=== PATIENT | female | born 1935 | race Caucasian/White ===

== ENCOUNTER 2018-10-30 02:59 | Inpatient (IN) | payer OTHER ==
[~2018-10-30] VITALS: Ht 167.6 cm; Wt 58.5 kg
[2018-10-30] VITALS (19 sets, daily range): BP systolic 93–167
--- NOTE | 2018-10-30 02:59 | NUR ---
Patient to ER bed 1 to gown for evaluation. Side rails up. Seizure precautions initiated.
--- NOTE | 2018-10-30 03:00 | NUR ---
ER at bedside examining patient.
--- NOTE | 2018-10-30 03:01 | NUR ---
Pt came to the ED by EMS for a witnessed 15 seizure. Reports that pt was seizing while EMS arrived. HX of seizures and blindness. Pts polst states pt is DNR. Pt is from home. Pt received 5 mg of Versed IV in L hand IV. Pt is a poor historian and unable to get history of pt. Upon observation pt is twitching. Pt on cardiac/O2 monitor. Seizure precautions continued. Will cont. to monitor.
--- NOTE | 2018-10-30 03:05 | NUR ---
Per EMS, pt is DNR with comfort measures, however, no paperwork was given.
--- NOTE | 2018-10-30 03:11 | NUR ---
Pt is currently unresponsive, on 15 L nonrebreather and twitching.
[2018-10-30] MEDS ORDERED: levETIRAcetam 1,000 MG IV BAG 100 ML IV ONE (03:15)
[2018-10-30] MEDS ORDERED: NACL 0.9% 1,000 ML IV ONE (03:15)
[2018-10-30] MEDS ORDERED: LORazepam 2 MG/ML VIAL IVP ONE (03:15)
[2018-10-30] MEDS ORDERED: LORazepam 2 MG/ML VIAL ONE (03:30)
[2018-10-30 03:48] LABS: BASOPHILS % (AUTO) 0.2 % (0.0-2.0); HEMATOCRIT 43.6 % (36-48); HEMOGLOBIN 14.7 g/dL (12.0-16.0); LYMPHOCYTES # (AUTO) 0.3 K/uL (1.0-5.5); LYMPHOCYTES % (AUTO) 2.6 % (20.5-51.5); MEAN CORPUSCULAR HEMOGLOBIN 34 pg (27-31); MEAN CORPUSCULAR HGB CONC 34 % (32-36); MEAN CORPUSCULAR VOLUME 102 fL (79.0-98.0); MONOCYTES # (AUTO) 0.4 K/uL (0.0-1.0); MONOCYTES % (AUTO) 2.9 % (1.7-9.3); NEUTROPHILS # (AUTO) 12.7 K/uL (1.8-7.7); NEUTROPHILS % (AUTO) 94.3 % (40.0-70.0); PLATELET COUNT (AUTO) 197 K/uL (130-430); RED BLOOD CELL COUNT(AUTO) 4.27 MIL/uL (4.2-6.2); WHITE BLOOD COUNT (AUTO) 13.4 K/uL (4.8-10.8)
[2018-10-30 03:55] LABS: ANION GAP 7 (5-15); CALCIUM 7.7 mg/dL (8.4-11.0); CHLORIDE 105 mmol/L (98-107); CREATININE 1.06 mg/dL (0.55-1.30); GLUCOSE 107 mg/dL (70-99); POTASSIUM 3.9 mmol/L (3.5-5.1); SODIUM SERUM 140 mmol/L (136-145); UREA NITROGEN, BLOOD 15 mg/dL (8-21)
[2018-10-30 03:59] LABS: PROTHROMBIN TIME 10.4 SECS (9.5-12.5)
[2018-10-30 04:00] LABS: ALANINE AMINOTRANSFERASE 16 U/L (12-78); ALBUMIN 2.9 g/dL (3.4-4.8); ASPARTATE AMINOTRANSFERASE 20 U/L (10-37); TOTAL BILIRUBIN 0.6 mg/dL (0.0-1.0)
[2018-10-30] MEDS ORDERED: levETIRAcetam 1,000 MG in NS 100 ML IV ONE (04:00)
[2018-10-30 04:13] LABS: BILIRUBIN,URINE NEGATIVE (NEGATIVE); BLOOD, URINE NEGATIVE (NEGATIVE); CLARITY/URINE HAZY (CLEAR); COLOR,URINE YELLOW (YELLOW); GLUCOSE,URINE NEGATIVE (NEGATIVE); KETONES,URINE NEGATIVE (NEGATIVE); LEUKOCYTE ESTERASE ,URINE 3+ (NEGATIVE); NITRITE, URINE NEGATIVE (NEGATIVE); PH,URINE 7.5 (5.0-8.0); PROTEIN URINE TRACE (NEGATIVE); UROBILINOGEN,URINE 0.2 (0.2-1.0)
[2018-10-30] MEDS ORDERED: ENOXAPARIN SODIUM 60 MG/0.6 ML SYRINGE SUBCUT ONE (04:15)
--- NOTE | 2018-10-30 04:17 | NUR ---
Pts polst states "selective treatment and DNR." Refer to POLST in chart
[2018-10-30] MEDS ORDERED: LEVE250T2 PO (04:42)
--- NOTE | 2018-10-30 05:10 | NUR ---
Pts relative Connie Andrews arrived to ED. She reports that she is POA. She states that pt was "eating pureed food at 1530. And normally can walk with walker at home." She cont. to report that "last night pt was swallowing food/drinks but not swallowing. She would keep it in her mouth." ER MD made aware
[2018-10-30 05:11] LABS: BACTERIA,URINE MANY /HPF (None Seen); HYALINE CASTS, URINE 0-10 /LPF (None Seen); RBC,URINE 0-3 /HPF (0-3); WBC,URINE >100 /HPF (0-3)
--- NOTE | 2018-10-30 05:11 | NUR ---
Patient will be admitted to care of Dr. Clements. Admitted to icu unit. Will go to room 7. Belongings list completed. Summary report printed. Report will be given at bedside.
--- NOTE | 2018-10-30 05:12 | NUR ---
Called ICU for bed, spoke to charge Rashmi BENNETT who said that due to staffing, pt will be a hold till 604. MARIUM MCGREGOR and Charge nurse made aware.
[2018-10-30] MEDS ORDERED: LEVOFLOXACIN 500 MG/D5W 100 ML IV SCH (05:45)
--- NOTE | 2018-10-30 06:15 | NUR ---
ADMISSION Pt admitted to ICU-8 via gurney accompanied by ER staff and PIEDAD Rosales. Pt non-verbal unable to assess pupils, patient is blind. Oxygen in use 3L/min nasal cannula, O2 sat greater than 95%. Bilateral lungs with rhonchi. Cardiac rhythm sinus rhythm. Pulses radial and pedal normal. Skin intact, with blanchable redness over buttocks, and bilateral heels. Crabtree cath placed in ER draining cloudy kristin color urine. IV sites 20ga LAC and 20ga Right wrist both started by ER staff. Left hand 20ga site started by EMT. All patent no redness or swelling noted @ site.
--- NOTE | 2018-10-30 06:15 | NUR ---
Transfer to ICU via ACLS protocol. Licensed nurse present. IV present no signs or symptoms of infiltration.
--- NOTE | 2018-10-30 06:20 | NUR ---
Called Dr. Woodard with a consult, spoke with Melissa from the exchange
--- NOTE | 2018-10-30 07:20 | NUR ---
Opening Note Received bedside report from endorsing RN for continuation of care. Received patient resting in bed, no signs or symptoms of acute distress noted. Bed locked in lowest position, bed alarm on, and call light within reach.
[2018-10-30] MEDS: LORazepam 2 MG/ML VIAL IVP PRN ×4 (08:12→17:16)
--- NOTE | 2018-10-30 08:50 | NUR ---
Called Dr. Ruiz with a consult(eleveted troponin), spoke with Melissa from the exchange
--- NOTE | 2018-10-30 09:15 | NUR ---
Dr. Ruiz at bedside examining patient. New orders received.
--- NOTE | 2018-10-30 11:00 | NUR ---
2D ECHO being performed at bedside by technical services assistant. No signs or symptoms of acute distress noted.
[2018-10-30 11:19] LABS: THYROID STIMULATING HORMONE 2.1 uIu/mL (0.36-3.74)
--- NOTE | 2018-10-30 11:43 | NUR ---
SS Note: BARK SKINNER met with pt and POA (Deb Jackson) at bedside for discharge plan assessment, and demographic information confirmed. Per Deb, prior to coming to the hospital, the patient seems to be in her normal state (eating, talking) in the AM, but was talking about "having 6 angels surrounding" her and verbalizing "I want to go [facility] to [facility] Per Deb, when pt was sleeping, she noticed that the patient had some "weird movements" and realized that it was not her baseline, hence calling 911. Pt was then brought to our ED. Per Deb, pt is a friend and has been living with her and her in her home for 6 months now. Deb is the patient's POA. Per Deb, pt is non ambulatory and dependent with her ADL's and is verbal. Pt does not have any family. Pt has an advanced directive and POLST on file. Pt receives fpc money of $2500/month. Pt is currently on self-pay. Per Deb, she tried to pay for the patient's Medicare but was told by SS to wait for "two months" for an unknown reason. [facility] is requesting for to provide a certificate of hospitalization to take to SS office tomorrow; BARK SKINNER will provide. BARK SKINNER provided pt with [facility], and Anuradha from Admitting is sending an email to [facility] to follow up. Addendum: 10/30/18 at 1219 by Steven BURNETTE PCP: Dr. Adrian Navas in [place] @ [phone].
[2018-10-30] MEDS: NACL 0.9% 1,000 ML IV SCH ×3 (11:53→23:03)
[2018-10-30] MEDS ORDERED: FAMOTIDINE PF 20 MG/2 ML VIAL IVP ONE (12:45)
--- NOTE | 2018-10-30 12:50 | NUR ---
Dr. Clements in to see patient. New orders received.
[2018-10-30] MEDS: IPRATROPIUM/ALBUTEROL SULFATE 3 ML AMPUL.NEB (DUONEB) INH SCH ×2 (13:32→19:40)
[2018-10-30] MEDS: LEVOFLOXACIN 500 MG/D5W 100 ML IV SCH (13:44)
--- NOTE | 2018-10-30 19:00 | NUR ---
Dr. Woodard in to see patient. New orders received.
--- NOTE | 2018-10-30 19:20 | NUR ---
Endorsement Endorsed bedside report to oncoming RN using SBAR approach for continuation of care.
--- NOTE | 2018-10-30 19:22 | NUR ---
Bedside report received from day shift nurse. Pt is lethargic and non-verbal. Oxygen is on via NC at 2L/min. Oxygen saturation is 94%. No seizure activity noted. Crabtree catheter to gravity drainage is draining kristin colored urine. IVF of NS is infusing well at 100ml/hr in right wrist without any signs of infiltration. Fall, seizure and safety precautions are in place. Bed alarm is on and bed is in the lowest and locked positions. Side rails are padded.
[2018-10-30] MEDS: levETIRAcetam 1,000 MG IV BAG 100 ML IV SCH (20:31)
[2018-10-30] MEDS ORDERED: levETIRAcetam 1,000 MG in NS 100 ML IV SCH (21:00)
--- NOTE | 2018-10-30 21:00 | NUR ---
Pt remains lethargic. No seizure activity noted. IVF is infusing well in right wrist.
--- NOTE | 2018-10-30 23:00 | NUR ---
Pt remains lethargic. IVF is infusing well in RW. No seizure activity noted.
[2018-10-31] VITALS (24 sets, daily range): BP systolic 98–182
--- NOTE | 2018-10-31 | NUR ---
Temp 99.7. Ice packs applied to forehead, chest and underarms. No seizure activity noted. IVF is infusing well in RW.
[2018-10-31] MEDS: IPRATROPIUM/ALBUTEROL SULFATE 3 ML AMPUL.NEB (DUONEB) INH SCH ×4 (00:55→20:13)
--- NOTE | 2018-10-31 01:10 | NUR ---
Pt suctioned both intranasally and orally. Moderate amount of thick brownish sputum noted. Temp 99.5 rectally. Cooling measures with ice packs continued. No seizure activity noted.
--- NOTE | 2018-10-31 01:50 | NUR ---
CARDIAC RHYTHM Call placed to Dr Ruiz to report cardiac rhythm change from sinus tach to uncontrolled afib 125-160 rate. Waiting return call from Dr Stephens (online education manager).
--- NOTE | 2018-10-31 02:50 | NUR ---
DR JOSEPH Give Digoxin 0.125mg IVP X1 now, May repeat in 3 hours if heart rate above 110.
--- NOTE | 2018-10-31 03:03 | NUR ---
HR 137 and Digoxin 0.125mg given IVP as ordered by Dr. Stephens.
[2018-10-31] MEDS ORDERED: DIGOXIN 0.5 MG/2 ML AMP ONE (03:11)
[2018-10-31] MEDS: DIGOXIN 0.5 MG/2 ML AMP IVP SCH ×2 (03:15→06:16)
--- NOTE | 2018-10-31 03:23 | NUR ---
Ativan 1mg given IV for seizure activity. Side rails remain padded. IVF is infusing well in RW.
[2018-10-31] MEDS: LORazepam 2 MG/ML VIAL IVP PRN ×2 (03:24→14:21)
--- NOTE | 2018-10-31 04:30 | NUR ---
Pt remains lethargic. No acute distress noted at this time. IVF is infusing well in RW.
[2018-10-31 05:25] LABS: BASOPHILS % (AUTO) 0.1 % (0.0-2.0); HEMATOCRIT 36.7 % (36-48); HEMOGLOBIN 12.4 g/dL (12.0-16.0); LYMPHOCYTES # (AUTO) 0.7 K/uL (1.0-5.5); LYMPHOCYTES % (AUTO) 5.4 % (20.5-51.5); MEAN CORPUSCULAR HEMOGLOBIN 35 pg (27-31); MEAN CORPUSCULAR HGB CONC 34 % (32-36); MEAN CORPUSCULAR VOLUME 103 fL (79.0-98.0); MONOCYTES # (AUTO) 0.6 K/uL (0.0-1.0); MONOCYTES % (AUTO) 4.6 % (1.7-9.3); NEUTROPHILS # (AUTO) 12.2 K/uL (1.8-7.7); NEUTROPHILS % (AUTO) 89.9 % (40.0-70.0); PLATELET COUNT (AUTO) 148 K/uL (130-430); RED BLOOD CELL COUNT(AUTO) 3.57 MIL/uL (4.2-6.2); RED CELL DISTRIBUTION WIDTH 13.2 % (9.0-15.0); WHITE BLOOD COUNT (AUTO) 13.6 K/uL (4.8-10.8)
[2018-10-31 05:55] LABS: ALANINE AMINOTRANSFERASE 12 U/L (12-78); ANION GAP 2 (5-15); ASPARTATE AMINOTRANSFERASE 16 U/L (10-37); CALCIUM 7.8 mg/dL (8.4-11.0); CHLORIDE 110 mmol/L (98-107); CHOLESTEROL 107 mg/dL (<200); CREATININE 0.92 mg/dL (0.55-1.30); GLUCOSE 111 mg/dL (70-99); HDL CHOLESTEROL 36 mg/dL (>55); LDL CHOLESTEROL 64 mg/dL (<100); POTASSIUM 3.7 mmol/L (3.5-5.1); SODIUM SERUM 136 mmol/L (136-145); THYROID STIMULATING HORMONE 1.89 uIu/mL (0.34-4.82); TOTAL BILIRUBIN 0.8 mg/dL (0.0-1.0); TRIGLYCERIDES 55 mg/dL (30-150); UREA NITROGEN, BLOOD 19 mg/dL (8-21)
--- NOTE | 2018-10-31 06:16 | NUR ---
HR 137 and second Digoxin 0.125mg given IVP as ordered by Dr. Stephens.
--- NOTE | 2018-10-31 07:20 | NUR ---
OPENING NOTE: Received SBAR report and plan of care from food and beverage analyst RN
--- NOTE | 2018-10-31 07:27 | NUR ---
Report given to day shift nurse.
--- NOTE | 2018-10-31 08:00 | NUR ---
Dr Ruiz at bedside
[2018-10-31] MEDS ORDERED: AMIODARONE HCL 900 MG in D5W 482 ML IV SCH (08:15)
--- NOTE | 2018-10-31 08:41 | NUR ---
New consult paged to Dr. Leija. Spoke with evelyne Torres.
[2018-10-31] MEDS: levETIRAcetam 1,000 MG IV BAG 100 ML IV SCH ×2 (08:53→20:12)
[2018-10-31] MEDS: FAMOTIDINE PF 20 MG/2 ML VIAL IVP SCH (08:53)
--- NOTE | 2018-10-31 09:09 | NUR ---
Nutrition Update Chintan Scale 13 noted. Pt admitted for s/p epilepticus. Diet: NPO BMI: 19.5 kg/m2 RD to follow per nutrition care standards.
--- NOTE | 2018-10-31 09:13 | NUR ---
AMIODARONE drip initiated as ordered
[2018-10-31] MEDS: NACL 0.9% 1,000 ML IV SCH (12:00)
[2018-10-31] MEDS: LEVOFLOXACIN 500 MG/D5W 100 ML IV SCH (13:09)
--- NOTE | 2018-10-31 14:00 | NUR ---
Dr Leija at bedside
--- NOTE | 2018-10-31 14:20 | NUR ---
Dietitian Recommendations * Consider ST swallow eval if/when medically appropriate * Pt would benefit from ONS Ensure Enlive TID and Syed BID if PO diet is indicated -- provides 1230 kcal/day, 65 gm protein/day QUINCY, CAMI Please refer to Nutrition Assessment for details. Addendum: 10/31/18 at [address] Amended: Links added.
--- NOTE | 2018-10-31 14:30 | NUR ---
CHG BATH: CHG bath given, gown and linens changed, patient tolerated well with minimal discomfort.
--- NOTE | 2018-10-31 15:13 | NUR ---
AMIODARONE drip rate reduced as ordered
[2018-10-31] MEDS: 0.45% NACL 1,000 ML IV SCH (15:30)
[2018-10-31] MEDS: PIPERACILLIN/TAZO 3.375/DEX-IS 50 ML IV SCH ×2 (18:03→23:19)
[2018-10-31] MEDS ORDERED: ENOXAPARIN SODIUM 40 MG/0.4 ML SYRINGE SUBCUT ONE (18:15)
--- NOTE | 2018-10-31 19:25 | NUR ---
ENDORSEMENT: SBAR report given and plan of care endorsed to machine operator helper SABRINA Chavez.
--- NOTE | 2018-10-31 19:30 | NUR ---
PM ASSESSMENT REPORT RECEIVED FROM DANII BENNETT. PT RECEIVED IN BED WITH EYES CLOSED, LETHARGIC, AND RESPONDING TO TACTILE STIMULATION. VSS, NO S/S OF ACUTE DISTRESS NOTED. PT ON 4L NC. A-FIB ON MONITOR. L HAND 20G TO SL, R WRIST 20G INFUSING 1/2 NS @ 80 CC/HR AND AMIODARONE DRIP @ 0.5 MG/MIN. UMANZOR CATH IN PLACE DRAINING YELLOW URINE TO GRAVITY. SEIZURE PRECAUTIONS IN PLACE. HOB ELEVATED, BED IN LOWEST POSITION, CALL LIGHT IN REACH. WILL CONTINUE TO MONITOR PT.
--- NOTE | 2018-10-31 23:30 | NUR ---
IV SITE IV SITE TO L HAND LEAKING. IV SITE DISCONTINUED. CATHETER INTACT, NO ACTIVE BLEEDING NOTED. IV Restarted on RT HAND. Successful after 1 attempts. Resumed current IVF AND MEDICATIONS. Will observe for any signs of infiltration.
[2018-11-01] VITALS (23 sets, daily range): BP systolic 106–179
--- NOTE | 2018-11-01 01:30 | NUR ---
NC PT SATURATION REMAINS IN THE HIGH 90s. RT DECREASED NC TO 3L AT THIS TIME. WILL CONTINUE TO MONITOR PT.
[2018-11-01] MEDS: IPRATROPIUM/ALBUTEROL SULFATE 3 ML AMPUL.NEB (DUONEB) INH SCH ×4 (01:34→19:46)
--- NOTE | 2018-11-01 02:30 | NUR ---
SUCTION RT PROVIDED NASOTRACHEAL SUCTIONING AT THIS TIME. LARGE AMOUNT OF THICK YELLOW SPUTUM NOTED. WILL CONTINUE TO MONITOR PT.
[2018-11-01] MEDS: PIPERACILLIN/TAZO 3.375/DEX-IS 50 ML IV SCH ×4 (05:41→23:11)
[2018-11-01] MEDS: 0.45% NACL 1,000 ML IV SCH ×2 (05:41→16:39)
[2018-11-01 06:29] LABS: BASOPHILS % (AUTO) 0.3 % (0.0-2.0); HEMATOCRIT 35.1 % (36-48); HEMOGLOBIN 11.9 g/dL (12.0-16.0); LYMPHOCYTES # (AUTO) 0.6 K/uL (1.0-5.5); LYMPHOCYTES % (AUTO) 5.4 % (20.5-51.5); MEAN CORPUSCULAR HEMOGLOBIN 35 pg (27-31); MEAN CORPUSCULAR HGB CONC 34 % (32-36); MEAN CORPUSCULAR VOLUME 103 fL (79.0-98.0); MONOCYTES # (AUTO) 0.5 K/uL (0.0-1.0); MONOCYTES % (AUTO) 4.7 % (1.7-9.3); NEUTROPHILS # (AUTO) 10.2 K/uL (1.8-7.7); NEUTROPHILS % (AUTO) 89.6 % (40.0-70.0); PLATELET COUNT (AUTO) 135 K/uL (130-430); RED BLOOD CELL COUNT(AUTO) 3.41 MIL/uL (4.2-6.2); RED CELL DISTRIBUTION WIDTH 12.9 % (9.0-15.0); WHITE BLOOD COUNT (AUTO) 11.4 K/uL (4.8-10.8)
[2018-11-01 06:35] LABS: ALANINE AMINOTRANSFERASE 16 U/L (12-78); ALBUMIN 2.1 g/dL (3.4-4.8); ANION GAP 8 (5-15); ASPARTATE AMINOTRANSFERASE 33 U/L (10-37); CALCIUM 7.8 mg/dL (8.4-11.0); CHLORIDE 108 mmol/L (98-107); CREATININE 0.83 mg/dL (0.55-1.30); GLUCOSE 102 mg/dL (70-99); POTASSIUM 3.2 mmol/L (3.5-5.1); SODIUM SERUM 139 mmol/L (136-145); UREA NITROGEN, BLOOD 15 mg/dL (8-21)
--- NOTE | 2018-11-01 07:27 | NUR ---
Opening Note Received plan of care from endorsing nurse Kathy BENNETT via sbar. Completed patient round.
--- NOTE | 2018-11-01 07:57 | NUR ---
Dr. Ruiz at bedside. Order received for NG tube placement and to continue amiodarone until we are able to give meds PO.
[2018-11-01] MEDS: AMIODARONE HCL 200 MG TABLET PO SCH (09:00)
[2018-11-01] MEDS: METOPROLOL TARTRATE 25 MG TABLET PO SCH (09:00)
[2018-11-01] MEDS ORDERED: POTASSIUM CHLORIDE 40 MEQ, LIDOCAINE JECT 2% PF 100 MG 50 MG in NS 250 ML IV ONE (09:00)
[2018-11-01] MEDS: levETIRAcetam 1,000 MG IV BAG 100 ML IV SCH ×2 (09:20→20:51)
[2018-11-01] MEDS: FAMOTIDINE PF 20 MG/2 ML VIAL IVP SCH (09:21)
[2018-11-01] MEDS: ENOXAPARIN SODIUM 40 MG/0.4 ML SYRINGE SUBCUT SCH (09:22)
--- NOTE | 2018-11-01 10:00 | NUR ---
Tried to place NG tube in both nares but was unable to confirm placement. PT tolerated the procedure without complication or complaints. Will allow patient to rest before trying again.
--- NOTE | 2018-11-01 10:40 | NUR ---
IV. ANOTHER IV ACCESS INSERTED INTO LEFT WRIST, USING 20 GAUGE CATHETER, GOOD BLOOD RETURN NOTED.
--- NOTE | 2018-11-01 14:00 | NUR ---
Dr. Leija at bedside. Requested if an OG tube can be placed. Per Dr. Leija it is okay to try. Placed OG tube into patient and was able to ascultate placement. Requested chest xray for confirmation. Received feed back from radiology that the tube has curled in the esophagus but tip of the tube is in the stomach. Received recommendation to pull tube out slightly to remove loop.
--- NOTE | 2018-11-01 15:50 | NUR ---
Dr. Clements at bedside. Discussed the POA request to not provide any tube feedings. Dr. Clements referred pt to social work therapist to help find hospice. Also was recommended to reach out to Dr. Ruiz to discuss IV medication for amiodarone and lopressor as patient is unable to take PO. Called Dr. Ruiz spoke to exchange. Per exchange Dr. Stephens will be doing rounds later this afternoon and will discuss medication conversion from PO to IV when he completes his rounds.
--- NOTE | 2018-11-01 15:52 | NUR ---
S.T. SWALLOW EVAL ORDER RECEIVED TODAY. CHECKED ON PT. NOT ABLE TO COMPLETE EVAL - PT IS ON OG TUBE. NURSES STACIA AND DR. CLAUDIA HENDRIX.
--- NOTE | 2018-11-01 16:05 | NUR ---
Wound Evaluation: Wound Consult ordered for Low Chintan Score. Patient evaluated for a low Chintan score of 12. Patient was lethargic and received in a Cliff Bed with IAM therapy intiated. Patient needs to be turned in bed. Skin is intact. Recommend reposition patient side to side only every 2 hours with pillow support. Elevate, off-load and float bilateral heels with pillows. Offload pressure areas with pillows for pressure re-distribution. Perform skin care and monitor skin integrity Q shift. Use moisture barrier cream on moisture susceptible areas QID and PRN for soiling. Place patient on a low air-loss mattress. Will continue to follow as a Chintan.
--- NOTE | 2018-11-01 16:20 | NUR ---
Risk Compliance Manager Note ACQUISITION MARKETING MANAGER discussed with Dr Clements. Patient has indicated no tube feedings in POLST and DPOA Deb confirmed that is patient's wish. Hospice is appropriate. Met with caregiver, Deb, at bedside. Offered support and confirmed patient's wishes. Deb in agreement with hospice. Dbe stated payment has been made to Medicare and patient would not qualify for [facility]. Phoned Admitting, but gone for the day. It seems Medicare is not yet in place and will not be able to confirm further until Sunday. [place] [facility] [phone][place] for inpatient hospice as discussed with Dr Clements. May confirmed that insurance must be in place before they can accept patient. Will follow up on Sunday. Addendum: 11/01/18 at 1634 by Meenakshi Clark LCSW Correction, hospice company is now called [facility].
--- NOTE | 2018-11-01 19:22 | NUR ---
Closing Note: Provided plan of care via sbar to endorsing nurse Kory BENNETT. Completed patient round.
--- NOTE | 2018-11-01 19:30 | NUR ---
Pt in bed, no acute distress noted at this time. VSS tolerating room air with O2 saturation of 97%. Responds to tactile stimuli. Amiodarone drip running and tolerating well with sinus arrhythmia on the monitor. IV patent with no infiltration noted. Crabtree catheter in placed draining clear yellow urine to gravity. Safety precaution observed, padded side rails in placed. call light within reach. Will continue to monitor Pt.
[2018-11-02] VITALS (25 sets, daily range): BP systolic 123–176
--- NOTE | 2018-11-02 | NUR ---
Pt in bed, no acute distress noted at this time. Will continue to monitor Pt.
[2018-11-02] MEDS: IPRATROPIUM/ALBUTEROL SULFATE 3 ML AMPUL.NEB (DUONEB) INH SCH ×4 (02:26→19:36)
--- NOTE | 2018-11-02 04:00 | NUR ---
Pt in bed, no acute distress noted at this time. Will continue to monitor Pt.
[2018-11-02] MEDS: PIPERACILLIN/TAZO 3.375/DEX-IS 50 ML IV SCH ×4 (05:44→23:14)
[2018-11-02] MEDS: 0.45% NACL 1,000 ML IV SCH ×2 (05:51→17:39)
[2018-11-02 05:53] LABS: BASOPHILS % (AUTO) 0.2 % (0.0-2.0); EOSINOPHILS % (AUTO) 0.2 % (0.0-4.0); HEMOGLOBIN 12.5 g/dL (12.0-16.0); MEAN CORPUSCULAR HEMOGLOBIN 35 pg (27-31); MEAN CORPUSCULAR HGB CONC 34 % (32-36); MONOCYTES # (AUTO) 0.4 K/uL (0.0-1.0); NEUTROPHILS # (AUTO) 7.2 K/uL (1.8-7.7); RED BLOOD CELL COUNT(AUTO) 3.57 MIL/uL (4.2-6.2); RED CELL DISTRIBUTION WIDTH 13.1 % (9.0-15.0)
[2018-11-02 05:55] LABS: HEMATOCRIT 36.3 % (36-48); LYMPHOCYTES # (AUTO) 0.5 K/uL (1.0-5.5); LYMPHOCYTES % (AUTO) 6.7 % (20.5-51.5); MEAN CORPUSCULAR VOLUME 102 fL (79.0-98.0); MONOCYTES % (AUTO) 5.2 % (1.7-9.3); NEUTROPHILS % (AUTO) 87.7 % (40.0-70.0); PLATELET COUNT (AUTO) 156 K/uL (130-430); WHITE BLOOD COUNT (AUTO) 8.2 K/uL (4.8-10.8)
[2018-11-02 06:15] LABS: ALANINE AMINOTRANSFERASE 16 U/L (12-78); ALBUMIN 2.1 g/dL (3.4-4.8); ANION GAP 7 (5-15); ASPARTATE AMINOTRANSFERASE 35 U/L (10-37); CALCIUM 7.6 mg/dL (8.4-11.0); CHLORIDE 109 mmol/L (98-107); CREATININE 0.73 mg/dL (0.55-1.30); GLUCOSE 98 mg/dL (70-99); POTASSIUM 3.3 mmol/L (3.5-5.1); SODIUM SERUM 140 mmol/L (136-145); UREA NITROGEN, BLOOD 8 mg/dL (8-21)
--- NOTE | 2018-11-02 07:04 | NUR ---
CLOSING NOTES Pt in bed, no acute distress. IV lines and skin checked with oncoming RN. Will give report via SBAR.
--- NOTE | 2018-11-02 07:32 | NUR ---
Opening Note Received plan of care via sbar from endorsing nurse Michael BENNETT. Completed patient rounding.
[2018-11-02] MEDS: FAMOTIDINE PF 20 MG/2 ML VIAL IVP SCH (08:24)
[2018-11-02] MEDS: ENOXAPARIN SODIUM 40 MG/0.4 ML SYRINGE SUBCUT SCH (08:25)
--- NOTE | 2018-11-02 09:00 | NUR ---
Dr. Leija at bedside. Reported potassium 3.3. Received orders for 40 meq potassium via IV fluid to run for 4 hours, 67.5 ml/hr.
[2018-11-02] MEDS ORDERED: POTASSIUM CHLORIDE 40 MEQ in NS 250 ML IV ONE (09:15)
--- NOTE | 2018-11-02 10:00 | NUR ---
Dr. Clements at bedside. No new orders.
[2018-11-02] MEDS: levETIRAcetam 1,000 MG IV BAG 100 ML IV SCH ×2 (10:26→20:34)
--- NOTE | 2018-11-02 11:30 | NUR ---
Removed IV on right hand 20 gauge. Site no longer patent and leaking. New IV placed on right wrist 20 gauge on one attempt following guidelines. Patient tolerated procedure without issues or complaints.
--- NOTE | 2018-11-02 15:30 | NUR ---
Dr. Stephens at bedside. Received new orders for Lopressor 5mg IV push Q6 scheduled. Also received approval to continue Amiodarone 0.5 mcg/min drip.
[2018-11-02] MEDS ORDERED: AMIODARONE HCL 900 MG in D5W 482 ML IV SCH (15:45)
[2018-11-02] MEDS ORDERED: METOPROLOL TARTRATE 5 MG/5 ML VIAL IVP ONE (16:00)
[2018-11-02] MEDS: METOPROLOL TARTRATE 5 MG/5 ML VIAL IVP SCH ×2 (17:43→23:15)
--- NOTE | 2018-11-02 18:05 | NUR ---
Nutrition Follow Up RD reviewed pt's current EMR including diet hx, physician notes, nursing notes, pertinent labs/meds/procedures, care trends and care activity. Current Enteral Regimen: Jevity 1.2 @ 20ml/hr with 150ml FWF via NGT. Subjective Information: RD visited at pt, observed no tube feeding in place. Per RN, family requested NGT to be pulled out with no further nutrition intervention. Comfort care is goal at this time. Estimated Energy Expenditure (kcals/day) 9984-7267 kcal/day (30-35 kcal/kg CBW for sepsis) Estimated Protein Required (g/day) 83-110 gm/day (1.5-2 gm/kg CBW for sepsis) Estimated Fluid Required (l/day) 1.4 L/day (25 ml/kg CBW for geriatric maintenance) Problem/Etiology/Signs/Symptoms *Increased nutritional needs related to metabolic demands as evidenced by estimated nutritional requirements for sepsis, and elevated WBC and lactic acid lab values. - ongoing *Inadequate nutrient intake related to no tube feeding per family wish as evidenced by tube feeding discontinued - new Expected Outcomes/Goals - Monitor enteral nutrition tolerance, appetite, and PO intakes w/ goal of pt meeting at least 50% of estimated nutritional needs, labs trending WNL, normal GI function, and skin integrity/wt maintenance Dietitian Recommendations 1. No tube feeding, continue comfort care per family wish Follow Up Low Risk: FU 7 days LT, RD
--- NOTE | 2018-11-02 18:15 | NUR ---
Dietitian Recommendations 1. No tube feeding, continue comfort care per family wish Please see nutrition follow up for further details. LT, RD
--- NOTE | 2018-11-02 19:30 | NUR ---
PM ASSESSMENT REPORT RECEIVED FROM PAIGE BENNETT. PT RECEIVED IN BED WITH EYES CLOSED, RESPONDING TO TACTILE STIMULATION. VSS, NO S/S OF ACUTE DISTRESS NOTED. PT ON 3L NC. SR W PACs ON MONITOR. R WRIST 22G INFUSING 1/2 NS @ 80 CC/HR AND L WRIST 20G INFUSING AMIODARONE DRIP @ 0.5 MG/MIN. UMANZOR CATH IN PLACE DRAINING YELLOW URINE TO GRAVITY. SEIZURE PRECAUTIONS IN PLACE. HOB ELEVATED, BED IN LOWEST POSITION, CALL LIGHT IN REACH. WILL CONTINUE TO MONITOR PT.
--- NOTE | 2018-11-02 21:15 | NUR ---
NASAL SUCTION LOUD GURGLING SOUND HEARD FROM PT AT THIS TIME. ORALLY SUCTIONED WITH MINIMAL SPUTUM RETURN. RT AT BEDSIDE TO PERFORM NASOTRACHEAL SUCTION. MODERATE AMOUNT OF THICK YELLOW SPUTUM EXTRACTED. WILL CONTINUE TO MONITOR PT.
[2018-11-03] VITALS (16 sets, daily range): BP systolic 108–213
[2018-11-03] MEDS: IPRATROPIUM/ALBUTEROL SULFATE 3 ML AMPUL.NEB (DUONEB) INH SCH ×4 (00:20→19:26)
--- NOTE | 2018-11-03 02:00 | NUR ---
RN ROUNDS PT RESTING COMFORTABLY IN BED WITH EYES CLOSED. BREATHING IS EVEN AND UNLABORED ON 3L NC. VSS, NO S/S OF ACUTE DISTRESS NOTED. WILL CONTINUE TO MONITOR PT.
[2018-11-03] MEDS: 0.45% NACL 1,000 ML IV SCH ×2 (05:03→20:03)
[2018-11-03] MEDS: METOPROLOL TARTRATE 5 MG/5 ML VIAL IVP SCH ×5 (05:04→23:39)
[2018-11-03] MEDS: PIPERACILLIN/TAZO 3.375/DEX-IS 50 ML IV SCH ×4 (05:04→23:36)
[2018-11-03 05:41] LABS: ANION GAP 7 (5-15); CALCIUM 7.4 mg/dL (8.4-11.0); CHLORIDE 103 mmol/L (98-107); CREATININE 0.66 mg/dL (0.55-1.30); GLUCOSE 145 mg/dL (70-99); POTASSIUM 3.2 mmol/L (3.5-5.1); SODIUM SERUM 135 mmol/L (136-145); UREA NITROGEN, BLOOD 5 mg/dL (8-21)
--- NOTE | 2018-11-03 07:13 | NUR ---
ENDORSEMENT BEDSIDE REPORT GIVEN TO JACOB BENNETT USING SBAR APPROACH.
--- NOTE | 2018-11-03 07:15 | NUR ---
Received patient from [facility] shift nurse and report. In no acute distress. Breathing even and unlabored. No pain AEB no facial grimacing, no moaning. Padded side rails in place. Call light with in reach. Tolerating 4 liters 02 on Nasal Cannula.
--- NOTE | 2018-11-03 08:22 | NUR ---
MOBILE DEVICE DEVELOPER GROUND INTELLIGENCE OFFICER DR JOSEPH WAS CALLED, RE: HIGH BP. SPOKE TO ANKIT.
--- NOTE | 2018-11-03 08:36 | NUR ---
Md Stephens called back, reported latest b/p /. Ordered to change Lopressor to every 4 hours instead of 6. New orders in place.
[2018-11-03] MEDS ORDERED: POTASSIUM CHLORIDE 40 MEQ in NS 250 ML IV ONE (09:30)
[2018-11-03] MEDS: FAMOTIDINE PF 20 MG/2 ML VIAL IVP SCH (09:33)
[2018-11-03] MEDS: levETIRAcetam 1,000 MG IV BAG 100 ML IV SCH ×2 (09:33→20:01)
[2018-11-03] MEDS: ENOXAPARIN SODIUM 40 MG/0.4 ML SYRINGE SUBCUT SCH (09:34)
--- NOTE | 2018-11-03 10:14 | NUR ---
Confirmed with pharmacy that IV potassium is compatible with amiodarone.
--- NOTE | 2018-11-03 12:01 | NUR ---
Pagesteven Clements for orders, spoke with exchange. Addendum: 11/03/18 at 1205 by Terri Horowitz RN Dr. Clements return call. New orders made and carried out.
--- NOTE | 2018-11-03 13:06 | NUR ---
Dr. Stephens paged and returned call. New orders made and carried out. Amiodarone drip off.
--- NOTE | 2018-11-03 15:00 | NUR ---
TRANSFER FROM ICU PATIENT RECEIVED FROM ICU WITH CLOSE EYES NON VERBAL NO DISTRESS, O2 WITH 2L/MIN HOB ELEVATED WITH IVF INTACT TO RT WRIST G 22 INFUSING ORDERED WITH SWOLLEN ARMS , RESP EVEN AND UNLABORED ,WILL MAINTAIN NPO , POA PENDING WITH HOSPICE, WILL MONITOR ,INITIAL VS TAKEN AND NO DISTRESS
--- NOTE | 2018-11-03 15:15 | NUR ---
Patient transferred to tele room 105 B via gurney, tele monitor, and portable 02 at 4 liters, tolerated transfer well. Endorsed patient and gave report to nurse Porsha. Caregiver Connie aware. Patient in no acute distress. No pain AEB no grimacing, no moaning. Breathing even and unlabored. Padded side rails in place. Call light with in reach.
--- NOTE | 2018-11-03 17:19 | NUR ---
ASLEEP PATIENT STILL SLEEPING A TTHIS TIME NO DISTRESS CONT WITH O2 INH VIA NC UMANZOR CATH INTACT AND NO HEMATURIA NOTED BOTH HANDS ELEVATED WILL CONT TO MONITOR AND NO SEIZURE NOTED
--- NOTE | 2018-11-03 18:41 | NUR ---
END RN NOTES PATIENT STAYS CALM AND CON ON 02 INH NO FACIAL GRIMACE OPENS EYES INTERMITTENTLY , CONT WITH REPOSITIONING HANDS KEEP ELEVATED AND HANDLE WITH CAUTION ,IVF INFUSING ORDERED AND CONT WITH IV ATB , SEEN BY DR JOSEPH WILL CONT CARDIAC MONITORING .SAFETY ENSURED AND NO SEIZURES NOTED
--- NOTE | 2018-11-03 19:45 | NUR ---
INITIAL ASSESSMENT AT INITIAL ASSESSMENT, PATIENT IS RESTING IN BED, STABLE, NO SIGNS OF RESPIRATORY DISTRESS. PATIENT IS NONVERBAL- SHE IS IN A ROOM CLOSE TO THE NURSING STATION FOR CLOSE MONITORING. BED IS LOCKED, ALARMED, AND AT THE LOWEST LEVEL. FALL, SAFETY, RESPIRATORY, AND SEIZURE PRECAUTIONS WILL BE IN PLACE THROUGHOUT THE SHIFT. PATIENT WILL BE TURNED AT LEAST S0OIFMS THROUGHOUT THE SHIFT.
[2018-11-04] VITALS: BP_SYST 152
[2018-11-04] MEDS: IPRATROPIUM/ALBUTEROL SULFATE 3 ML AMPUL.NEB (DUONEB) INH SCH ×4 (00:30→19:01)
[2018-11-04] MEDS: METOPROLOL TARTRATE 5 MG/5 ML VIAL IVP SCH ×6 (04:02→23:42)
[2018-11-04] MEDS: PIPERACILLIN/TAZO 3.375/DEX-IS 50 ML IV SCH ×4 (06:36→23:43)
--- NOTE | 2018-11-04 06:45 | NUR ---
CLOSING NOTE PATIENT SLEPT WELL THROUGHOUT THE NIGHT. AT THIS TIME, PATIENT IS RESTING IN BED, STABLE, NO SIGNS OF RESPIRATORY DISTRESS. CALL LIGHT IS WITHIN REACH. BED IS LOCKED, ALARMED, AND AT THE LOWEST LEVEL. FALL, SAFETY, RESPIRATORY, AND SEIZURE PRECAUTIONS HAVE BEEN IN PLACE THROUGHOUT THE NIGHT. WILL CONTINUE TO MONITOR UNTIL SHIFT REPORT IS GIVEN AT BEDSIDE TO AM NURSE.
--- NOTE | 2018-11-04 07:30 | NUR ---
Initial Note-Pt resting in bed. Breathing even and un-labored. Pt receiving breathing treatment for RT. Side rails padded, room close to nursing station. Bed in low position, bed alarm on, call light within reach.
[2018-11-04 08:00] VITALS: BP_SYST 139
[2018-11-04] MEDS ORDERED: POTASSIUM CHLORIDE 40 MEQ, LIDOCAINE JECT 2% PF 100 MG 50 MG in NS 250 ML IV ONE (08:45)
[2018-11-04] MEDS: FAMOTIDINE PF 20 MG/2 ML VIAL IVP SCH (08:59)
[2018-11-04] MEDS: ENOXAPARIN SODIUM 40 MG/0.4 ML SYRINGE SUBCUT SCH (09:00)
--- NOTE | 2018-11-04 09:10 | NUR ---
MD Rounds Dr. Ruiz at bedside examining pt. Informed MD yesterdays potassium of 3.2, and 40 meq were given yesterday. Per Dr. Ruiz ok to administer new order of 40meq for today.
[2018-11-04] MEDS: levETIRAcetam 1,000 MG IV BAG 100 ML IV SCH ×2 (09:14→22:38)
--- NOTE | 2018-11-04 10:15 | NUR ---
MD Rounds Dr. Leija at bedside, examined pt.
--- NOTE | 2018-11-04 10:49 | NUR ---
Animal Caregiver: Follow up re. Hospice VICE PRESIDENT OF BUSINESS DEVELOPMENT called Lisa in Admitting who stated pt will not be getting Medi-Jorje She will follow up re. Medicare and run this inquiry w/ pts. SSN and get back to VICE PRESIDENT OF BUSINESS DEVELOPMENT. Addendum: 11/04/18 at 1502 by Trupti De Guzman VICE PRESIDENT OF BUSINESS DEVELOPMENT Animal Caregiver: follow up with caregiver VICE PRESIDENT OF BUSINESS DEVELOPMENT tried to contact Deb barrera, but had to leave a phone message for her. To date, VICE PRESIDENT OF BUSINESS DEVELOPMENT is to contact Yris in Admin tomorrow to see if Medicare is in place then VICE PRESIDENT OF BUSINESS DEVELOPMENT can contact [facility]. As per suggestion, inquire if caregiver wants hospice in home. VICE PRESIDENT OF BUSINESS DEVELOPMENT recieved message from rachel sharp, Mark Nettles from [facility], came to [facility] at the request of Deb the caregiver. Deb stated she paid all the bills for Medicare and was going to go back to the bank today to see if she can obtain proof that her checks for Medicare had been cashed to help expidite process to secure payment for Hospice. When VICE PRESIDENT OF BUSINESS DEVELOPMENT asked Deb if she wanted to have hospice services in her home, she said the conservator, Jose Manuel, wants hospice in a facility. Mark stated he would check to see if his agency would accept pt. under a janice case. VICE PRESIDENT OF BUSINESS DEVELOPMENT will follow up. Addendum: 11/05/18 at 1243 by Trupti De Guzman VICE PRESIDENT OF BUSINESS DEVELOPMENT Animal Caregiver Follow up VICE PRESIDENT OF BUSINESS DEVELOPMENT spoke to Deb, caregiver power of trust and estates attorney. She stated she is still trying to obtain paperwork showing proof she paid for medicare. She will keep VICE PRESIDENT OF BUSINESS DEVELOPMENT updated. VICE PRESIDENT OF BUSINESS DEVELOPMENT called Conservator, James Richard at [phone] who confirmed Deb is making medical decisions, he confimred that both he and [place] agree that pt is not to have a feeding tube based on pts.' wishes. He stated he is the trustee and handles the finances. He will work on asking Deb to have pt. in home with hospice however, Deb does not want pt. to in her own home. Mr. Richard stated he was going to the bank to liquidate all pts. assessts and get his name on the checking so he can write checks. He stated he will wait to see when Medicare is approved. He stated he is working with [facility] and is available as needed. VICE PRESIDENT OF BUSINESS DEVELOPMENT thanked him.
--- NOTE | 2018-11-04 11:30 | NUR ---
Notes- Pt incontinent of bowel, cleaned and repositioned, tolerated well. Pt resting in bed, breathing even and un-labored.
[2018-11-04 12:00] VITALS: BP_SYST 146
[2018-11-04] MEDS: 0.45% NACL 1,000 ML IV SCH (12:43)
--- NOTE | 2018-11-04 13:10 | NUR ---
Notes Reposition patient. No acute distress noted. IVF infusing well.
--- NOTE | 2018-11-04 15:00 | NUR ---
MD Rounds Dr. Clements examining patient at bedside.
--- NOTE | 2018-11-04 15:13 | NUR ---
Wound Re-Evaluation: Patient re-evaluated for a low Chintan score of 12. Patient was lethargic and received in a [place] Bed with IAM therapy. Patient needs to be turned in bed. Past Medical History: CVA, Atrial Fibrillation, Congestive Heart Failure, possible Chronic Kidney Disease, legally blind, Seizure disorder, Dementia. Recent Labs: WBC 8.2, RBC 3.57, hemoglobin 12.5, hematocrit 36.3, potassium 3.2, glucose 145, BUN 5, creatinine 0.66, albumin 2.1, PTT 22.9. Intrinsic factors that delay wound healing: Hypoalbuminemia, congestive heart failure, atrial fibrillation. Extrinsic factors that delay wound healing: Decreased mobility. Microbiology: Blood culture results 2 negative. MRSA screen results negative. Urine culture results positive for Escherichia coli. Skin Assessment: 1. Buttocks: Intertrigo with MASD/re-opened scar tissue. Wound bed has 100% pink tissue. No odor, no drainage. Ameena-wound intact. Surrounding tissue has scar tissue. Measures 1.1 cm x 0.2 cm. Recommend: Cleanse wound with normal saline. Pat dry. Apply Calmoseptine cream to site. Cover site with Sacral foam dressing (insert dressing into gluteal sulcus with fingers first, then laying adhesive borders of dressing down afterward. Perform site care daily, and as needed for dressing soiling or dislodgement. 2. Left upper extremity: Multiple, multiple areas of scar tissue and dry scabs, present on admission. 3. Right upper extremity: Multiple, multiple areas of scar tissue and dry scabs, present on admission. Recommend: No dressings needed. Continue to monitor sites qshift. Recommend reposition patient side to side only every 2 hours with pillow support. Elevate, off-load and float bilateral heels with pillows. Offload pressure areas with pillows for pressure re-distribution. Perform skin care and monitor skin integrity Q shift. Use Calmoseptine cream on moisture susceptible areas QID and PRN for soiling. Maintain patient on a low air-loss mattress.
[2018-11-04 15:16] VITALS: BP_SYST 137
--- NOTE | 2018-11-04 15:18 | NUR ---
Notes Wound care nurseMarty at bedside. Wound care completed, pt tolerated well. No pain noted using FLACC scale. See [facility] assessment for wound care. Pt incontinent of bowel, cleaned and repositioned.
[2018-11-04] MEDS ORDERED: MENTHOL/ZINC OXIDE 113 GM OINT. TP PRN (16:00)
--- NOTE | 2018-11-04 17:30 | NUR ---
Notes Left wrist IV catheter found dislodged. Catheter intact, no bleeding. Repositioned patient. No acute distress noted.
--- NOTE | 2018-11-04 19:29 | NUR ---
Closing Note Bedside SBAR given to night clerk auditor nurse. Pt resting in bed. No acute distress noted. Breathing even and un-labored. Educated pt on use of call light for assistance, call light within range. Educated pt on use of bed alarm for pt safety, bed alarm on. Bed in lowest and locked position. Side rails padded, room close to nursing station. Care endorsed to night clerk auditor RN.
[2018-11-04 20:00] VITALS: BP_SYST 143
--- NOTE | 2018-11-04 20:00 | NUR ---
Pt was received lying in bed with her eyes closed. No respiratory distress noted. Oxygen is on via NC at 3L/min and O2 sat is 95%. Side rails are padded and no seizure activity noted. Crabtree catheter to gravity drainage is draining yellowish urine. IVF of 1/2 NS is infusing well at 65ml/hr in right wrist without any signs of infiltration. Fall, seizure and safety precautions are in place. Bed alarm is on and bed is in the lowest and locked positions.
--- NOTE | 2018-11-04 22:00 | NUR ---
No seizure activity noted. IVF is infusing well in RW. Fall, seizure nd safety precautions are in place.
--- NOTE | 2018-11-05 | NUR ---
No acute distress noted. Pt's eyes remain closed. No seizure activity noted. IVF is infusing well in RW.
[2018-11-05 00:26] VITALS: BP_SYST 140
[2018-11-05] MEDS: IPRATROPIUM/ALBUTEROL SULFATE 3 ML AMPUL.NEB (DUONEB) INH SCH ×4 (00:55→19:58)
--- NOTE | 2018-11-05 02:05 | NUR ---
No respiratory distress or seizure activity noted. Pt is [id number] quietly in bed. Fall, seizure and safety precautions are in place.
[2018-11-05] MEDS: METOPROLOL TARTRATE 5 MG/5 ML VIAL IVP SCH ×6 (02:51→23:23)
--- NOTE | 2018-11-05 04:00 | NUR ---
Pt is sleeping without any respiratory distress noted. IVF is infusing well in RW. Call light is with pt and bed is in the lowest and locked positions. Bed alarm is on and side rails remains padded. No seizure activity noted.
[2018-11-05] MEDS: PIPERACILLIN/TAZO 3.375/DEX-IS 50 ML IV SCH ×4 (05:33→23:23)
--- NOTE | 2018-11-05 06:30 | NUR ---
Pt is awake and not in any distress at this time. Pt is resting quietly in bed. IVF is infusing well in RW. Fall and safety precautions are in place. All pt's needs were attended to. Will endorse to day shift nurse.
[2018-11-05 07:45] VITALS: BP_SYST 135
[2018-11-05] MEDS: ENOXAPARIN SODIUM 40 MG/0.4 ML SYRINGE SUBCUT SCH (08:43)
[2018-11-05] MEDS: FAMOTIDINE PF 20 MG/2 ML VIAL IVP SCH (08:43)
[2018-11-05] MEDS: levETIRAcetam 1,000 MG IV BAG 100 ML IV SCH ×2 (08:45→22:06)
[2018-11-05] MEDS: 0.45% NACL 1,000 ML IV SCH (08:46)
[2018-11-05 11:33] VITALS: BP_SYST 150
--- NOTE | 2018-11-05 12:00 | NUR ---
DCP Hospice: per SABRINA Garcia they are working on insurance so patient can be accepted on hospice care.
[2018-11-05 15:22] VITALS: BP_SYST 149
--- NOTE | 2018-11-05 16:20 | NUR ---
Care Center Manager Note Met Conservator, James Richard [phone], at bedside. Confirmed he is in agreement that [facility] ([facility]) is the preferred option for patient once Medicare is reinstated. 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 The bills were not received due to change in address. He confirms the checks have been cashed for Medicare payments. Deb is going to the Social Security office today in an attempt to expedite. James confirmed that patient's stated wishes are not to prolong her life, DNR with no tube feedings. Await Medicare reinstatement for hospice placement.
--- NOTE | 2018-11-05 18:44 | NUR ---
CLOSING NOTES, PATIENT HAS BEEN STABLE, NO C/O PAIN, NO SOB, IV FLUIDS INFUSING WELL. PT TURNED AND REPOSTIONED Q2HR. WILL ENDORSE TO NIGHT NURSE.
--- NOTE | 2018-11-05 19:30 | NUR ---
Bedside report was obtained from day shift nurse. Pt was received lying in bed with her eyes closed. No respiratory distress or seizure activity noted. Crabtree catheter to gravity drainage is draining yellowish urine. IVF of 1/2 NS is infusing well at 65ml/hr in right wrist without any signs of infiltration. Fall, seizure and safety precautions are in place. Bed alarm is on and bed is in the lowest and locked positions.
[2018-11-05 20:00] VITALS: BP_SYST 143
--- NOTE | 2018-11-05 21:25 | NUR ---
Pt is resting quietly in bed. No seizure activity noted. IVF is infusing well in RW. Fall, safety and seizure precautions are in place.
--- NOTE | 2018-11-05 21:58 | NUR ---
IV Angiocath in RW noted to be out intact. New IV line was restarted in same wrist with Angiocath 22G. Pt is confused and remains non-verbal.
--- NOTE | 2018-11-06 | NUR ---
Pt is resting quietly in bed. No acute distress noted at this time. No seizure activity noted. IVF is infusing well in RW.
[2018-11-06] MEDS: IPRATROPIUM/ALBUTEROL SULFATE 3 ML AMPUL.NEB (DUONEB) INH SCH ×4 (01:05→19:11)
[2018-11-06 01:38] VITALS: BP_SYST 138
--- NOTE | 2018-11-06 02:00 | NUR ---
Pt is sleeping without any distress noted. IVF is infusing well in RW. Fall, seizure and safety precautions are in place.
[2018-11-06] MEDS: METOPROLOL TARTRATE 5 MG/5 ML VIAL IVP SCH ×6 (03:27→22:12)
[2018-11-06] MEDS: 0.45% NACL 1,000 ML IV SCH ×2 (03:32→09:49)
--- NOTE | 2018-11-06 04:00 | NUR ---
Pt continues to sleep without any distress noted. IVF is infusing well in RW. Fall, seizure and safety precautions are in place.
[2018-11-06] MEDS: PIPERACILLIN/TAZO 3.375/DEX-IS 50 ML IV SCH ×4 (06:19→23:11)
--- NOTE | 2018-11-06 06:50 | NUR ---
Pt is sleeping and not in any distress at this time. Pt is resting quietly in bed. IVF is infusing well in RW. Fall and safety precautions are in place. All pt's needs were attended to. Will endorse to day shift nurse
--- NOTE | 2018-11-06 07:42 | NUR ---
A/OX0, EYES CLOSED. RESPONDS TO STIMULI. NO SIGNS OF RESPIRATORY DISTRESS. CALL LIGHT IS IN PLACE, BED IS LOCKED AND ALARMED AT THE LOWEST POSITION. FALL, SAFETY,SEIZURE PRECAUTIONS ARE CONTINUED. WILL CONTINUE TO MONITOR
[2018-11-06 08:00] VITALS: BP_SYST 118
--- NOTE | 2018-11-06 09:02 | NUR ---
Pin Drafting Machine Tender Note Phoned Anuradha in Admitting. Medicare still is not effective. Phoned Deb. She is at the [employer] office this morning waiting in line. She will call with an update when done. Phoned Renato at [facility] to discuss case. He will talk with his hr administrator about possibly accepting patient for care at [facility]. Addendum: 11/06/18 at 1024 by Meenakshi Clark LCSW Met with patient's caregiver, Deb, at bedside. She has a letter from [employer]. It seems she is expecting Medicare to come through today. She confirmed that [facility] is the first choice with inpatient hospice. Provided letter to Anuradha in Admitting. Phoned May at [facility] p [phone] f [phone]. A bed is available. She agreed to evaluate patient today and requested patient's information be faxed. Phoned Joaquim BENNETT to obtain hospice eval order. Addendum: 11/06/18 at 1646 by Meenakshi Clark LCSW Found hospice evaluation order from 11/01/18 listed under consults earlier in the day. Faxed patient's information to Luana Linares). They will come to evaluate patient when Medicare comes through. As of end of my day, Medicare is still not active.
[2018-11-06] MEDS: FAMOTIDINE PF 20 MG/2 ML VIAL IVP SCH (09:48)
[2018-11-06] MEDS: levETIRAcetam 1,000 MG IV BAG 100 ML IV SCH ×2 (09:49→21:39)
[2018-11-06] MEDS: ENOXAPARIN SODIUM 40 MG/0.4 ML SYRINGE SUBCUT SCH (09:50)
--- NOTE | 2018-11-06 10:27 | NUR ---
DR. TAYLOR IS CALLED TO OBTAIN THE HOSPICE EVAL ORDER.
[2018-11-06 11:24] VITALS: BP_SYST 158
--- NOTE | 2018-11-06 12:00 | NUR ---
DR. TAYLOR IS CALLED REGARDING PATIENT'S HOSPICE EVAL ORDER. AWAITING CALL BACK.
--- NOTE | 2018-11-06 14:22 | NUR ---
PATIENT IS TURNED AND CLEANED, REPOSITIONED FOR COMFORT.
[2018-11-06 16:02] VITALS: BP_SYST 164
--- NOTE | 2018-11-06 16:20 | NUR ---
PATIENT IS TURNED AND REPOSITIONED FOR COMFORT. ORAL HYGIENE IS DONE.
--- NOTE | 2018-11-06 18:30 | NUR ---
DR. TAYLOR ASSESSED PATIENT. MAINTAIN CURRENT FLUID ORDER, BUT SHE WILL ADD MEDICATIONS FOR BP CONTROL.
--- NOTE | 2018-11-06 19:16 | NUR ---
OPENING NOTES Pt and endorsement received from day shift nurse. Pt is resting in bed with both eyes closed, with visible chest rise and fall with non-labored breathing noted. Pt on O2 inhalation at 2L via nasal cannula. Pt on IVF with 0.45NS at 65ml/hr and infusing well on right hand G22 and pt on saline lock on left forearm G22. Pt on christianson catheter with yellow urine noted in the bag and hanged below bladder level. No signs of pain like moaning or grimacing. No signs of acute distress or SOB noted. Safety precautions in place with 3 side rails up, wheels locked, bed alarm on and in lowest level. Call light with pt. Will continue to monitor.
[2018-11-06 21:36] VITALS: BP_SYST 150
--- NOTE | 2018-11-06 21:40 | NUR ---
ROUNDS Pt is resting in bed with both eyes closed, with visible chest rise and fall with non-labored breathing noted. Pt is arousable when shaking or to localized pain, moans when trying to wake her up but does not open her eyes. No signs of acute distress noted. IVF infusing well. Positioned comfortably in bed. Safety precautions in place and call light with pt. Will continue to monitor.
[2018-11-06] MEDS ORDERED: ENALAPRILAT DIHYDRATE 1.25 MG/ML VIAL IVP PRN (21:45)
[2018-11-07] VITALS (7 sets, daily range): BP systolic 121–156
--- NOTE | 2018-11-07 01:18 | NUR ---
ROUNDS Pt is resting in bed with both eyes closed, with visible chest rise and fall with non-labored breathing noted. No signs of pain like moaning and grimacing. No signs of acute distress noted. IVF infusing well. Safety precautions in place and call light with pt. Will continue to monitor.
[2018-11-07] MEDS: 0.45% NACL 1,000 ML IV SCH ×3 (01:21→20:57)
[2018-11-07] MEDS: IPRATROPIUM/ALBUTEROL SULFATE 3 ML AMPUL.NEB (DUONEB) INH SCH ×4 (01:29→20:06)
[2018-11-07] MEDS: METOPROLOL TARTRATE 5 MG/5 ML VIAL IVP SCH ×6 (03:00→22:42)
--- NOTE | 2018-11-07 03:17 | NUR ---
ROUNDS Pt is resting in bed with both eyes closed, with visible chest rise and fall with non-labored breathing noted. No signs of acute distress or SOB noted. IVF infusing well. Oral care rendered. Safety precautions in place and call light with pt. Will continue to monitor.
--- NOTE | 2018-11-07 06:31 | NUR ---
CLOSING NOTES Pt is resting in bed with both eyes closed, with visible chest rise and fall with non-labored breathing noted. Maintained O2 at 2L via nasal cannula. IVF infusing well. Kept urine bag hanged below bladder level. No signs of pain like moaning or grimacing at this time. No signs of acute distress or SOB noted. All needs attended throughout the shift. Seizure pads in place. Safety precautions maintained with 3 side rails up, wheels locked, bed alarm on and in lowest level. Will endorse to day shift nurse.
--- NOTE | 2018-11-07 07:47 | NUR ---
RN INITIAL NOTES RECEIVED PATIENT IN BED WITH EYES OPEN NON VERBAL NO ACUTE DISTRESS NOTED ,PATIENT CHEST NOTES RISE AND FALL WITH CONT O2 INH VIA NC ,IVF INFUSING ORDERED , WITH 2 IV ACCESS TO BOTH ARMS, UMANZOR CATH INTACT AND HANGED NO SIGN OF HEMATURIA , CONT ON BREATHING TX ORDERED AND MAINTAINED NPO, ENDORSED HOSPICE STILL PENDING.
--- NOTE | 2018-11-07 10:00 | NUR ---
ATTENDING MD ROUNDS DR CARMICHAEL CAME DISCUSSED PATIENT CARE MADE AWARE THAT HOSPICE STILL PENDING , PATIENT CONT WITH SAME MEDS AND CONT IV ORDERED.
[2018-11-07] MEDS: levETIRAcetam 1,000 MG IV BAG 100 ML IV SCH ×2 (10:15→20:56)
[2018-11-07] MEDS: ENOXAPARIN SODIUM 40 MG/0.4 ML SYRINGE SUBCUT SCH (10:17)
[2018-11-07] MEDS: FAMOTIDINE PF 20 MG/2 ML VIAL IVP SCH (10:18)
--- NOTE | 2018-11-07 12:00 | NUR ---
ROUNDS PATIENT ASLEEP AT THIS TIME , CONT MEDS AND NO DISTRESS
--- NOTE | 2018-11-07 14:30 | NUR ---
DR RENDON PATIENT SEEN BY COATING OPERATOR FOLLOWED UP METOPROLOL IV SAID TO CONT IV SINCE PATIENT IS NPO
--- NOTE | 2018-11-07 16:24 | NUR ---
Hospice/MediCare Follow Up: SEAFOOD PROCESS WORKER followed up Anuradha regarding Medicare, she informed that Pt.'s Medicare is still not active as of today, per [facility] office promotional representative matter has been escalated and will likely be resolved by Sunday. SEAFOOD PROCESS WORKER consulted with [facility] [phone] Felicity in Admitting. She relayed that fax was received with SSA letter, However, SS letter indicates that the matter is still processing and has not been reinstated, she will call back and inform if her thoroughbred horse farm manager will approve for the Pt to have a hospice evaluation prior to her MediCare being reinstated. SS to continue to follow up to verify if MediCare has been reinstated and Hospice Eval.
--- NOTE | 2018-11-07 17:14 | NUR ---
RN NOTES /METOPROLOL PATIENT GIVEN LATE METOPROLOL AFTER VERIFYING WITH CASH GRAIN GROWER
--- NOTE | 2018-11-07 18:04 | NUR ---
END RN NOTES WILL CONT CARE PATIENT REPOSITIONING AND KEEP BACK DRY AND CLEAN ,PATIENT STILL PENDING WITH HOSPICE , PATIENT COTN WITH IV ORDERED AND NO AR/SE NOTED .NO SEIZURE NOTED
--- NOTE | 2018-11-07 20:00 | NUR ---
Initial note: Report received from leonarda RN. Patient is resting in bed, no acute distress, tolerating 2L NC. IV fluids infusing as ordered to right forearm IV site, no infiltration noted. Crabtree catheter draining yellow urine to gravity. Safety, fall, and seizure precautions in place. Will continue with plan of care.
--- NOTE | 2018-11-07 21:32 | NUR ---
Rounds: Patient is resting comfortably in bed, no distress noted. Tolerating 2L NC, respirations are even and unlabored. Call light with patient. Will continue to monitor.
[2018-11-08 00:22] VITALS: BP_SYST 136
--- NOTE | 2018-11-08 00:48 | NUR ---
Rounds: Patient is resting in bed, no acute distress noted on 2L NC, even and unlabored breathing. IV fluids infusing as ordered. Call light is with patient. Will continue to monitor.
[2018-11-08] MEDS: IPRATROPIUM/ALBUTEROL SULFATE 3 ML AMPUL.NEB (DUONEB) INH SCH ×4 (01:35→19:59)
--- NOTE | 2018-11-08 03:21 | NUR ---
Rounds: Patient is asleep, no acute distress shown. Breathing is even and unlabored on 2L NC. IV fluids infusing well, no infiltration noted. Call light with patient. Will continue to monitor.
[2018-11-08] MEDS: METOPROLOL TARTRATE 5 MG/5 ML VIAL IVP SCH ×5 (04:04→19:57)
--- NOTE | 2018-11-08 06:07 | NUR ---
Closing note: Patient is resting in bed, no acute distress noted. Tolerating 2L NC. IV site to right wrist is patent and intact. All needs met. Safety, fall, and seizure precautions observed. Will endorse care to dayshift RN.
--- NOTE | 2018-11-08 08:00 | NUR ---
RN INITIAL NOTES RECEIVED PATIENT IN BED ASLEEP BUT RESPONDS TO TACTILE STIMULI ,IVF INFUSING TO RT WRIST ORDERED , REPOSITIONED AND KEEP BACK DRY AND CLEAN, RESP EVEN AND UNLABORED , CONT WITH KEPPRA DRIP, NO SEIZURE REPORT NOTED AT THIS TIME , YONI ACHARYA CAME AND STATED SHE WILL GO BACK TO MEDICARE OFFICE FOR THE PROCESSING OF THE INSURANCE AND SHE WILL COME BACK ONCE SHE HAS ANSWER PENDING HOSPICE EVAL, CHARGE NURSE MADE AWARE, SAFETY PRECAUTION PROVIDED AND MONITORED.
[2018-11-08] MEDS: ENOXAPARIN SODIUM 40 MG/0.4 ML SYRINGE SUBCUT SCH (09:31)
[2018-11-08] MEDS: FAMOTIDINE PF 20 MG/2 ML VIAL IVP SCH (09:34)
[2018-11-08] MEDS: levETIRAcetam 1,000 MG IV BAG 100 ML IV SCH ×2 (09:35→21:49)
--- NOTE | 2018-11-08 10:00 | NUR ---
ROUNDS PATIENT ASLEEP AT THIS TIME NO SIGN OF SEIZURES NO FEVER. WILL CONT MEDS
[2018-11-08 13:15] VITALS: BP_SYST 150
--- NOTE | 2018-11-08 13:31 | NUR ---
Production Support Engineer: follow up re. Medicare clearance MATH PROFESSOR spoke to Anuradha in Admin. She stated Medicare is still pending and feels like perhaps by Sunday we get clearance and move pt. to hospice care with [facility]. Anuradha stated she will check at the end of the day. MATH PROFESSOR will remain available as needed.
--- NOTE | 2018-11-08 14:44 | NUR ---
Nutrition Follow Up RD reviewed pt's current EMR including diet hx, physician notes, nursing notes, pertinent labs/meds/procedures, care trends and care activity. Current Enteral Regimen: no active order Subjective Information: Pt seen in bed, no EN support infusing at time of visit. Per RN notes, family requested no tube feeding and comfort care only at this time. Estimated Energy Expenditure (kcals/day) 1720-7551 kcal/day (30-35 kcal/kg CBW for sepsis) Estimated Protein Required (g/day) 83-110 gm/day (1.5-2 gm/kg CBW for sepsis) Estimated Fluid Required (l/day) 1.4 L/day (25 ml/kg CBW for geriatric maintenance) Problem/Etiology/Signs/Symptoms *Increased nutritional needs related to metabolic demands as evidenced by estimated nutritional requirements for sepsis, and elevated WBC and lactic acid lab values. - ongoing *Inadequate nutrient intake related to no tube feeding per family wish as evidenced by tube feeding discontinued - ongoing Expected Outcomes/Goals - Monitor enteral nutrition tolerance, appetite, and PO intakes w/ goal of pt meeting at least 50% of estimated nutritional needs, labs trending WNL, normal GI function, and skin integrity/wt maintenance Dietitian Recommendations 1. Adhere to comfort care per family and pt request. Follow Up Low Risk: FU 7 days CAMI JHA
--- NOTE | 2018-11-08 14:46 | NUR ---
Dietitian Recommendations 1. Adhere to comfort care per family and pt request. ABHIJEET, RD
--- NOTE | 2018-11-08 16:31 | NUR ---
PCP ROUNDS DR CARMICHAEL CAME UPDATED WITH PATIENT CONDITION AND HOSPICE STILL PENDING . DR CARMICHAEL SAID CONT SAME MEDS AND CALL HER IF ANY CHANGES OCCUR.,NO SEIZURE NOTED
[2018-11-08 16:55] VITALS: BP_SYST 142
[2018-11-08] MEDS: 0.45% NACL 1,000 ML IV SCH ×3 (17:03→17:05)
[2018-11-08 18:17] VITALS: BP_SYST 149
--- NOTE | 2018-11-08 19:08 | NUR ---
END RN NOTES PATIENT HAS NO CHANGE IN CONDITION, PATIENT NO SEIZURE THE WHOLE SHIFT , WILL CONT WITH SAME CARE PREVIOUSLY ORDERED AND WILL REFER PRN ORDERED, CONT ON IVF ORDERED , UMANZOR CATH INTACT NO HEMATURIA
--- NOTE | 2018-11-08 19:20 | NUR ---
OPENING NOTES Received patient resting in bed, eyes closed. No acute respiratory distress observed, 2 L nasal canula. Air mattress is working. IV at R Wrist 22 g, patent, dressings c/d/i, running IVF. Call light on, bed alarm on, and bed at lowest position. Will continue to monitor.
[2018-11-08 20:00] VITALS: BP_SYST 155
--- NOTE | 2018-11-08 22:15 | NUR ---
Patient is resting, eyes closed. No signs of acute respiratory distress observed, 2L Nasal canula. Safety and seizure precautions. Crabtree catheter draining by gravity, no kinks, not touching the floor, clear, yellow urine noted. Will continue to monitor.
[2018-11-09] VITALS (7 sets, daily range): BP systolic 138–156
--- NOTE | 2018-11-09 00:07 | NUR ---
Patient is resting, eyes closed. Unlabored, symmetrical breathing, 2L NC. No signs of pain per FLACC scale. Crabtree catheter draining per gravity. Seizure and safety precautions in place. Will continue to monitor.
[2018-11-09] MEDS: IPRATROPIUM/ALBUTEROL SULFATE 3 ML AMPUL.NEB (DUONEB) INH SCH ×4 (00:30→19:35)
[2018-11-09] MEDS: METOPROLOL TARTRATE 5 MG/5 ML VIAL IVP SCH ×7 (02:00→22:21)
--- NOTE | 2018-11-09 02:15 | NUR ---
Patient resting with no signs of respiratory distress, 2L NC. Seizure precautions and safety precautions in place. Will continue to monitor.
--- NOTE | 2018-11-09 04:10 | NUR ---
Patient is resting, eyes closed. Rise and fall of chest noted, no acute respiratory distress observed, 2L NC. Seizure precautions in place. Will continue to monitor.
[2018-11-09] MEDS ORDERED: METOPROLOL TARTRATE 5 MG/5 ML VIAL ONE (06:17)
--- NOTE | 2018-11-09 06:46 | NUR ---
CLOSING NOTES Patient is resting in bed, eyes closed. No signs of acute respiratory distress observed. IVF running, IV site in tact, dressings c/d/i. Crabtree catheter draining per gravity, no kinks, not touching the floor, clear, yellow urine noted. All needs met throughout shift. Call light within reach, bed alarm on, bed at lowest position. Seizure precautions in place. Will endorse care to oncoming shift.
--- NOTE | 2018-11-09 08:00 | NUR ---
Received pt from PM shift. Pt is asleep, mumbling on and off. Helped SURVEYING CREW STAKE RUNNER to turn patient. No respiratory distress noted, pt appears to be comfortable. Nasal canula in place, 2L. Call light within reach, all side rails up. Will continue to monitor
[2018-11-09] MEDS: levETIRAcetam 1,000 MG IV BAG 100 ML IV SCH ×2 (10:18→22:21)
[2018-11-09] MEDS: ENOXAPARIN SODIUM 40 MG/0.4 ML SYRINGE SUBCUT SCH (10:19)
[2018-11-09] MEDS: FAMOTIDINE PF 20 MG/2 ML VIAL IVP SCH (10:20)
--- NOTE | 2018-11-09 12:00 | NUR ---
Pt is calm and resting, no pain observed. Patient turned to opposite side. No respiratory distress, nasal cannula 2L. Will continue to monitor
[2018-11-09] MEDS: 0.45% NACL 1,000 ML IV SCH (13:34)
--- NOTE | 2018-11-09 15:00 | NUR ---
No events/change in status. Spoke with MARCK Wright who says he will speak to leather case finisher regarding his preferences for hospice. All the information for Kyle ACHARYA is in the chart.
--- NOTE | 2018-11-09 18:00 | NUR ---
CLOSING notes- Patient is calm and resting, A/0, non verbal. No respiratory distress noted. Call light within reach, also sitter in room. Will continue to monitor. Patient repositioned towards the window
--- NOTE | 2018-11-09 19:28 | NUR ---
OPENING NOTES Received patient resting in bed, eyes closed. No signs of acute respiratory distress observed, 2L NC. Crabtree catheter draining by gravity, no kinks, not touching the floor, clear, yellow urine noted. IV site in tact, patent, dressings c/d/i. Seizure precautions in place. Call light within reach, bed alarm on, bed at lowest position. Will continue to monitor.
--- NOTE | 2018-11-09 20:36 | NUR ---
Transfer of care Report given to SABRINA Irene. Patient was stable, no signs of acute respiratory distress, 2L NC. Crabtree catheter draining by gravity, no kinks, not touching the floor, yellow clear urine noted. IV site in tact, IVF running, dressings c/d/i.
--- NOTE | 2018-11-09 20:45 | NUR ---
ASSUMPTION OF CARE RECEIVED HANDOFF REPORT FROM ANNIE-SABRINA AT THE BEDSIDE. PATIENT IS RESTING COMFORTABLY IN BED, EYES CLOSED. BREATHING EVEN AND UNLABORED, VISIBLE CHEST RISE AND FALL NOTED. NO SOB, NO ACUTE DISTRESS, NO SIGNS OF PAIN OR FACIAL GRIMACING. BED IS LOCKED, IN THE LOWEST POSITION, 2X SIDE RAILS UP, BED ALARM IS ON. CALL LIGHT IS WITHIN REACH. WILL CONTINUE WITH PLAN OF CARE.
--- NOTE | 2018-11-09 21:20 | NUR ---
PATIENT TRANSFERED TO ROOM 132B PER CHARGE NURSE REQUEST.
--- NOTE | 2018-11-09 22:30 | NUR ---
PATIENT RESTING COMFORTABLY IN BED, EYES CLOSED. VISIBLE CHEST RISE AND FALL NOTED. CURRENTLY ON 2LNC, SATURATING >95%. NO SOB, NO ACUTE DISTRESS, NO SIGNS OF PAIN.
[2018-11-10] VITALS (8 sets, daily range): BP systolic 133–177
--- NOTE | 2018-11-10 00:18 | NUR ---
Rounds Patient is resting comfortably in bed, eyes closed. Breathing even and unlabored, visible chest rise and fall noted. NO SOB, no acute distress, no signs of pain or facial grimacing noted. Bed is locked, in the lowest position, 2x side rails up, bed alarm is on. Call light within reach. Seizure pads in place.
--- NOTE | 2018-11-10 01:40 | NUR ---
PATIENT RESTING COMFORTABLY IN BED, EYES ARE CLOSED. BREATHING IS EVEN AND UNLABORED. WILL CONTINUE TO MONITOR.
[2018-11-10] MEDS: IPRATROPIUM/ALBUTEROL SULFATE 3 ML AMPUL.NEB (DUONEB) INH SCH ×4 (01:52→19:36)
[2018-11-10] MEDS: METOPROLOL TARTRATE 5 MG/5 ML VIAL IVP SCH ×5 (03:39→19:15)
--- NOTE | 2018-11-10 03:42 | NUR ---
PATIENT RESTING COMFORTABLY IN BED. EYES CLOSED. BREATHING EVEN AND UNLABORED. NOTED CHEST RISE AND FALL. BED IS LOCKED, LOWEST POSITION, 2X SIDE RAILS UP, BED ALARM IS ON. IV SITE INTACT, DRESSING CLEAN AND DRY, CURRENTLY INFUSING IVF PER MD ORDER, SEE EMAR FOR DETAILS.
--- NOTE | 2018-11-10 05:30 | NUR ---
INCONTINENCE CARE PROVIDED TO THE PATIENT. PATIENT IS NOW CLEAN AND DRY, RESTING COMFORTABLY IN BED.
[2018-11-10] MEDS: 0.45% NACL 1,000 ML IV SCH ×2 (06:15→21:38)
--- NOTE | 2018-11-10 07:00 | NUR ---
CLOSING NOTES PATIENT IS RESTING COMFORTABLY IN BED, AAOX0. NO SOB, NO ACUTE DISTRESS, NO COMPLAINTS OF PAIN AT THIS TIME. BED IS LOCKED, IN THE LOWEST POSITION, 2X SIDE RAILS UP, BED ALARM IS ON. IV SITE INTACT, INFUSING IVF PER MD ORDER, SEE EMAR. CALL LIGHT WITHIN REACH. ALL NEEDS HAVE BEEN MET DURING THIS SHIFT. WILL ENDORSE CARE TO ONCOMING DAYSHIFT NURSE.
[2018-11-10] MEDS: FAMOTIDINE PF 20 MG/2 ML VIAL IVP SCH (10:13)
[2018-11-10] MEDS: ENOXAPARIN SODIUM 40 MG/0.4 ML SYRINGE SUBCUT SCH (10:13)
[2018-11-10] MEDS: levETIRAcetam 1,000 MG IV BAG 100 ML IV SCH ×2 (10:13→21:28)
--- NOTE | 2018-11-10 10:15 | NUR ---
Patient is turned and repositioned for comfort.
--- NOTE | 2018-11-10 12:25 | NUR ---
Patient is turned and repositioned for comfort.
--- NOTE | 2018-11-10 14:30 | NUR ---
Dr. Clements calls in about another patient, and she is asked about the plan of care for Mrs. Kohli. No new orders given.
--- NOTE | 2018-11-10 16:31 | NUR ---
patient is turned and repositioned for comfort.
--- NOTE | 2018-11-10 18:30 | NUR ---
Patient is resting, responsive only to light stimulus. turned and repositioned for comfort.
--- NOTE | 2018-11-10 19:15 | NUR ---
change of shift.pt.presents code status;dnr;confirmed.pt.presents quiescent affect;calm,somnolent,lethargic.pt.presents o2-therapy via nasal cannulae.pt.presents iv acces;iv fluids,pt.presents christianson catheter.call light/telephone w/in reach of the pt.
--- NOTE | 2018-11-10 20:00 | NUR ---
pt.assessed.v/s assessed;b/p values elevated;to review the emar;med-list.pt.presents quiescent affect;calm,somnolemnt,lethargic; pt.assessed for cleanliness.pt.repositioned.iv access intact;patent;iv fluids infusing.christianson catheter intact;patent;urine content present. general status stable.respiratory status stable;02-sat%=94%.call light/telephone placed w/in reach of the pt.
--- NOTE | 2018-11-10 21:00 | NUR ---
2100p medications administered;ivp:medications.i have administered keppra;ivpb.i have changed the iv fluids bag. Addendum: 11/11/18 at 0322 by Edgar Broussard RN pt.ordered to receive the administration:lopressor;5mg ivp q-4hrs;scheduled;subsequent dose scheduled 2300p.
--- NOTE | 2018-11-10 22:00 | NUR ---
pt.assessed.pt.presents quiescent affect;calm,somnolent.pt.assessed for cleanliness.pt.cleaned.pt.repositioned.iv access intact;patent;iv fluids infusing.christianson catheter assessed;intact;patent;urine content present.general status stable;respiratory status stable:02-sat%=94.call light/telephone placed w/in reach of the pt.
--- NOTE | 2018-11-10 23:00 | NUR ---
i have assessed the v/s;p/t to the administration;lopressor;5mg ivp;scheduled.v/s assessed:b/p values noted;able to administered the lopressor;5mg ivp.iv access intact;patent.absent resistance.
--- NOTE | 2018-11-11 | NUR ---
pt.assessed.v/s assessed;values w/in normal limits;b/p values noted.pt.assessed for cleanliness.pt.repositioned.iv access intact;patent;iv fluids infusing.christianson catheter intact;patent;urine content present.general status stable.respiratory status stable:02-sat%=94%.call light/telephone placed w/in reach of the pt.
[2018-11-11] MEDS: METOPROLOL TARTRATE 5 MG/5 ML VIAL IVP SCH ×7 (00:09→23:44)
[2018-11-11 00:32] VITALS: BP_SYST 120
[2018-11-11] MEDS: IPRATROPIUM/ALBUTEROL SULFATE 3 ML AMPUL.NEB (DUONEB) INH SCH ×4 (01:16→19:35)
--- NOTE | 2018-11-11 02:00 | NUR ---
pt.assessed.pt.presents quiescent affect;calm,somnolent.pt.assessed for cleanliness.pt.repositioned.iv access intact;patent iv fluids infusing. christianson catheter intact;patent;urine content present.general status stable.respiratory status stable;unlabored;02-sat%=94%. call light/telephone placed w/in reach of the pt.
[2018-11-11 03:00] VITALS: BP_SYST 137
--- NOTE | 2018-11-11 03:00 | NUR ---
pt.assessed.v/s assessed;lopressor;scheduled@0300a.b/p w/in normal limits to administer the lopressor;i have administered lopressor;5mg ivp as per scheduled..
--- NOTE | 2018-11-11 04:00 | NUR ---
pt.assessed.pt.presents quiescent affect;calm,somnolent.pt.assessed for cleanliness.pt.repositioned.iv access intact;patent iv fluids infusing. christianson catheter intact;patent;urine content present.general status stable.respiratory status stable:unlabored;02-sat%=96%. call light/telephone placed w/in reach of the pt.
--- NOTE | 2018-11-11 06:45 | NUR ---
pt.assessed.pt.assessed for cleanliness.pt.cleaned.pt.repositioned.i have as the v/s note b/p values p/t the administration of ht lopressor;5mg ivp. the b/p values warrent the administration of the lopressor.general status stable.respiratory status stable;:o2-sat%=96%.christianson catheter intact;patent;urine content present.call light/telephone placed w/in reach of the pt.
--- NOTE | 2018-11-11 07:44 | NUR ---
rn opening note Report was endorsed by night nurse at bed side. Patient is laying in bed no signs of any distress, breathing is equal and non labored. Patient has all seizure and safety precautions in place. Patient is close to nurses station. no other needs at this time. will continue to monitor.
[2018-11-11 07:57] VITALS: BP_SYST 137
--- NOTE | 2018-11-11 09:55 | NUR ---
MEDICATION Addendum: 11/11/18 at 1849 by Angelic Guillaume RN patients scheduled medication given as ordered. Patient is laying in bed non verbal non alert, no signs of any distress or discomfort, patients breathing is equal and non labored. Patient has all safety precautions in place, and seizure precautions in place. Patient is close to nurses station. Patient has no other needs at this time.
[2018-11-11] MEDS: FAMOTIDINE PF 20 MG/2 ML VIAL IVP SCH (09:57)
[2018-11-11] MEDS: ENOXAPARIN SODIUM 40 MG/0.4 ML SYRINGE SUBCUT SCH (09:58)
[2018-11-11] MEDS: levETIRAcetam 1,000 MG IV BAG 100 ML IV SCH ×2 (10:01→21:54)
--- NOTE | 2018-11-11 10:06 | NUR ---
Supply Chain Vice President Note Anuradha from Admitting called. Medicare is not showing up yet. Will check again later in the day. Addendum: 11/11/18 at 1604 by Meenakshi CHINOW Medicare still not showing as per Lisa in Admitting.
--- NOTE | 2018-11-11 12:08 | NUR ---
Medication Addendum: 11/11/18 at 1851 by Angelic Guillaume RN Patients scheduled medication given as ordered. Patient is laying in bed no signs of any distress, breathing is equal and non labored. Patient has all safety precautions in place. and seizure precautions in place. patient has no other needs at this time will continue to monitor.
[2018-11-11 13:04] VITALS: BP_SYST 140
--- NOTE | 2018-11-11 14:00 | NUR ---
rn rounding Patient has family member at bed side. Patient is laying in bed no signs of any distress, breathing is equal and non labored. Patient shows no signs of discomfort. Patient has all safety and seizure precautions in place. Patient is close to nurses station. will continue to monitor.
--- NOTE | 2018-11-11 16:12 | NUR ---
Medication Patients scheduled medication given as ordered. Patient is laying in bed no signs of any distress, breathing is non labored. Patient has all safety precautions and seizure precautions in place. Patient is close to nurses station no other needs at this time. will continue to monitor.
[2018-11-11] MEDS: 0.45% NACL 1,000 ML IV SCH (16:28)
[2018-11-11 17:24] VITALS: BP_SYST 143
--- NOTE | 2018-11-11 18:45 | NUR ---
rn closing note Patient is laying in bed no signs of any distress, breathing is equal and non labored. Patient shows no signs of discomfort. Patients scheduled medication given as ordered. Patient has all safety and seizure precautions in place. Call light with patient.unable to educate due to non verbal, not alert. patient is close to nurses station. no other needs at this time.
--- NOTE | 2018-11-11 19:47 | NUR ---
OPENING NOTES Received patient, resting in bed w/ eyes closed. No sign of distress, non labored breathing. IVF infusing via IV oin right wrist. Bed is locked in lowest position, side rails up, IAM mattress, seizure pads on, bed alarm on and call light w/in reach. Updated board.
[2018-11-11 20:00] VITALS: BP_SYST 156
[2018-11-12] VITALS (7 sets, daily range): BP systolic 119–161
[2018-11-12] MEDS: IPRATROPIUM/ALBUTEROL SULFATE 3 ML AMPUL.NEB (DUONEB) INH SCH ×4 (00:45→19:33)
[2018-11-12] MEDS: METOPROLOL TARTRATE 5 MG/5 ML VIAL IVP SCH ×6 (02:06→22:55)
--- NOTE | 2018-11-12 02:07 | NUR ---
Blood Pressure medication Scheduled blood pressure medication given, Dimitri WILSON. B/P 160/69, HR 71.
[2018-11-12] MEDS: 0.45% NACL 1,000 ML IV SCH ×2 (06:34→23:07)
--- NOTE | 2018-11-12 07:30 | NUR ---
Opening note patient resting in bed, awake, non verbal. No facial grimacing. No SOB. Iv patent, intact, and infusing fluids as ordered. no adverse side effects noted. O2 sat 94% on O2 2 LPM via nasal cannula. Crabtree catheter in place, draining to gravity yellow, urine. On seizure, safety and aspiration precautions. Patient maintaining NPO status, HOB kept elevated, padded side rails in place. 3 side rails up, bed in lowest position. Call light within reach. patient in stable condition. Will continue to monitor.
[2018-11-12] MEDS: FAMOTIDINE PF 20 MG/2 ML VIAL IVP SCH (09:23)
[2018-11-12] MEDS: levETIRAcetam 1,000 MG IV BAG 100 ML IV SCH ×2 (09:23→21:15)
[2018-11-12] MEDS: ENOXAPARIN SODIUM 40 MG/0.4 ML SYRINGE SUBCUT SCH (09:24)
--- NOTE | 2018-11-12 09:30 | NUR ---
medications All medications given as ordered. No adverse side effects noted. No acute distress. patient in stable condition.
--- NOTE | 2018-11-12 12:00 | NUR ---
Piping Engineer Note Medicare is still not showing. Rashmi in Admitting suggested asking the hospice company to call the Medicare office to confirm that Medicare was in the process of being reinstated, . Phoned Felicity at [facility] [phone]. The voice network administrator called and could not receive confirmation that Medicare would for sure be reinstated. Addendum: 11/12/18 at 1218 by Meenakshi Clark LCSW Spoke with the voice network administrator of [facility]. They must notify Medicare within 5 days of starting hospice. If for some reason Medicare is not officially reinstated by that time, they could not be reimbursed. They would also be out the cost of the SNF. It seems we must keep patient here until Medicare is officially reinstated.
--- NOTE | 2018-11-12 12:06 | NUR ---
Rounds patient resting in bed at this time, no complaints of pain. Iv patent, intact, and infusing as ordered. no adverse side effects noted.
--- NOTE | 2018-11-12 14:14 | NUR ---
Rounds Patient resting in bed at this time, no facial grimacing. Crabtree catheter in place draining yellow urine to gravity. Skin care provided. No other needs at this time.
--- NOTE | 2018-11-12 16:30 | NUR ---
Rounds Patient resting in bed at this time, no SOB. No acute distress. No facial grimacing. Skin care provided. patient maintaining NPO status. No other needs at this time.
--- NOTE | 2018-11-12 18:30 | NUR ---
Closing note patient resting in bed, awake, non verbal. No facial grimacing. No SOB. Iv patent, intact, and infusing fluids as ordered. no adverse side effects noted. O2 sat 96% on O2 2 LPM via nasal cannula. Crabtree catheter in place, draining to gravity yellow, urine. On seizure, safety and aspiration precautions. Patient maintaining NPO status, HOB kept elevated, padded side rails in place. 3 side rails up, bed in lowest position. Call light within reach. patient in stable condition. all need met.
--- NOTE | 2018-11-12 19:20 | NUR ---
initial notes: pt is resting in bed. eyes close, no sign of distress. no sob. no active seizure. pt has ongoing ivf infusing to right forearm gauge 22- intact and patent. no sign of infiltration.pt has christianson catheter draining to gravity. pt has pitting edema to left upper extremity. pt is not responding to verbal command. assess pt. passive rom on all extremities show rigidity. reposition. padded rails up. low bed position and lock. bed alarm on. will follow-up.
--- NOTE | 2018-11-12 22:00 | NUR ---
sleeping quietly. no sob. no sign of pain and distress. padded raluis up. call light in reach. will follow-up.
--- NOTE | 2018-11-13 | NUR ---
sleeping. no sob. no sign of pain and distress. reposition. padded rails up. call light in reach. will follow-up.
[2018-11-13] MEDS: IPRATROPIUM/ALBUTEROL SULFATE 3 ML AMPUL.NEB (DUONEB) INH SCH ×4 (01:10→20:00)
--- NOTE | 2018-11-13 02:00 | NUR ---
sleeping. no distress. stable. no seizure. ivf infusing well.
[2018-11-13 03:17] VITALS: BP_SYST 141
[2018-11-13] MEDS: METOPROLOL TARTRATE 5 MG/5 ML VIAL IVP SCH ×6 (03:20→23:32)
--- NOTE | 2018-11-13 04:18 | NUR ---
sleeping, stable. no pain, no sob. not distress. reposition. padded rails up.
--- NOTE | 2018-11-13 06:00 | NUR ---
sleeping. no sob. no distress. stable. no the whole shift seizure. ivf infusing well. safety on. padded rails up.
--- NOTE | 2018-11-13 07:13 | NUR ---
closing: pt is resting. non verbal, no sob and no distress. ivf fusing well. christianson catheter intact and drain by gravity. needs attended the whole shift. padded rails up. safety on. bedside report givent maikel rossi rn.
--- NOTE | 2018-11-13 07:25 | NUR ---
Opening note patient resting in bed, awake, non verbal. No facial grimacing. No SOB. Iv patent, intact, and infusing fluids as ordered. no adverse side effects noted. O2 sat 98% on O2 2 LPM via nasal cannula. Crabtree catheter in place, draining to gravity yellow, urine. On seizure, safety and aspiration precautions. Patient maintaining NPO status, HOB kept elevated, padded side rails in place. 3 side rails up, bed in lowest position. Call light within reach. patient in stable condition. Will continue to monitor.
[2018-11-13 08:00] VITALS: BP_SYST 142
[2018-11-13] MEDS: ENOXAPARIN SODIUM 40 MG/0.4 ML SYRINGE SUBCUT SCH (09:13)
[2018-11-13] MEDS: FAMOTIDINE PF 20 MG/2 ML VIAL IVP SCH (09:14)
[2018-11-13] MEDS: levETIRAcetam 1,000 MG IV BAG 100 ML IV SCH ×2 (09:14→21:07)
--- NOTE | 2018-11-13 09:35 | NUR ---
medications All medications given as ordered. No adverse side effects noted. No acute distress. patient in stable condition.
--- NOTE | 2018-11-13 09:54 | NUR ---
Case mgt: Lisa in admitting will check with Medicare today to see if Medicare is re-instated yet, as dc planning for inpt hospice is dependant upon pt's Medicare being re-instated. VINNIE BENNETT
--- NOTE | 2018-11-13 11:45 | NUR ---
Rounds patient resting in bed at this time, no complaints of pain. Iv patent, intact, and infusing as ordered. no adverse side effects noted.
--- NOTE | 2018-11-13 12:02 | NUR ---
Salesperson Flowers- follow-up KEY CARRIER called [facility] who stated pts.' Medicare has not yet been reintstated. KEY CARRIER shared info with SABRINA Davidson. KEY CARRIER will continue to inquire and remain available as needed. Addendum: 11/13/18 at 1511 by Trupti De Guzman KEY CARRIER Salesperson Flowers: Follow up with Hospice status KEY CARRIER met with Rep Mcclelland from [facility], Fax, cell phone, who stated they have done pro-jaime placement. KEY CARRIER asked if she could consider pt. Ms Kohli who is awaiting for Medicare to be reinstated. Krystin said she is going to check with her admin and asked if caregiver would be ok if this placement took place, sevices could take place in a snf or in her home. This way pt can be d/c from hospital as soon as today. KEY CARRIER will try to reach the caregiver. KEY CARRIER called caregiver Deb and left a message.
[2018-11-13 13:17] VITALS: BP_SYST 150
--- NOTE | 2018-11-13 16:19 | NUR ---
Skin care Skin care provided. Patient tuned and repositioned. No signs of pain. No facial grimacing.
[2018-11-13 16:21] VITALS: BP_SYST 159
--- NOTE | 2018-11-13 18:28 | NUR ---
Closing note Patient resting in bed, No SOB. No acute distress. No facial grimacing. No SOB. Iv patent, intact, and infusing fluids as ordered. no adverse side effects noted. O2 sat 98% on O2 2 LPM via nasal cannula. Crabtree catheter in place, draining to gravity yellow, urine. On seizure, safety and aspiration precautions. Patient maintaining NPO status, HOB kept elevated, padded side rails in place. 3 side rails up, bed in lowest position. Call light within reach. patient in stable condition. All needs met.
--- NOTE | 2018-11-13 19:25 | NUR ---
OPENING NOTE LATE ENTRY D/T PATIENT CARE. Received patient, resting in bed w/ eyes closed. No sign of distress, non labored breathing on 2L NC. IVF infusing via IV oin right wrist. Bed is locked in lowest position, side rails up 3x, IAM mattress, seizure pads on, bed alarm on and call light w/in reach.
[2018-11-13 20:00] VITALS: BP_SYST 159
--- NOTE | 2018-11-13 21:11 | NUR ---
Medication Due medication, Keppra IVPB, administered as ordered. Infusing well and patient tolerating. Will continue to monitor.
--- NOTE | 2018-11-13 23:32 | NUR ---
Lopressor IVP late entry d/t patient care Lopressor IVP given as ordered. B/P 139/70, HR 72. She was repositioned for comfort. Safety, seizure, aspiration precautions maintained.
[2018-11-14] VITALS: BP_SYST 139; BP_SYST 150
[2018-11-14] MEDS: IPRATROPIUM/ALBUTEROL SULFATE 3 ML AMPUL.NEB (DUONEB) INH SCH ×4 (01:15→19:55)
--- NOTE | 2018-11-14 02:20 | NUR ---
rounds Patient is resting w/eyes closed, no distress, non labored breathing. IVF infusing well. Repositioned for comfort. Safety, seizure, aspiration precautions maintained.
[2018-11-14] MEDS: METOPROLOL TARTRATE 5 MG/5 ML VIAL IVP SCH ×6 (03:00→23:52)
--- NOTE | 2018-11-14 03:34 | NUR ---
Low B/P Presently B/P is 103/54, HR 98. Did not administer due Lopressor medication. Will continue to monitor.
[2018-11-14 04:00] VITALS: BP_SYST 113
--- NOTE | 2018-11-14 04:03 | NUR ---
Rounds / V/S Patient' s B/P 113/59, HR 60. She was positioned supine with pillow support on legs, heels off-loading. Will continue to monitor.
[2018-11-14] MEDS: 0.45% NACL 1,000 ML IV SCH ×2 (05:37→21:17)
--- NOTE | 2018-11-14 05:50 | NUR ---
IVF / Dressing change IVF fluids empty, replace with new bag. Infusing as ordered, infusing well. Patient repositioned and sacral dressing changed, cleansed with normal saline, applied barrier cream and foam dressing.
--- NOTE | 2018-11-14 06:50 | NUR ---
B/P B/P is 124/64, HR 74. Scheduled IVP Lopressor not given due to blood pressure on normal level and will decrease to low if given.
--- NOTE | 2018-11-14 07:25 | NUR ---
AM ROUNDS: PATIENT SLEEPING DURING ROUNDS. ON O2 2L/NC,GOOD SATURATION.BEDSIDE REPORT GIVEN BY NIGHT NURSE ÁLVARO. NO ACUTE DISTRESS. BED LOCKED AT LOWEST POSITION. BED ALARM ON. CALL LIGHT WITH I REACH. DNR CODE STATUS.
--- NOTE | 2018-11-14 07:30 | NUR ---
closing note endorsed report, patient stable.
[2018-11-14 08:13] VITALS: BP_SYST 116
[2018-11-14] MEDS: levETIRAcetam 1,000 MG IV BAG 100 ML IV SCH ×2 (08:39→21:17)
[2018-11-14] MEDS: FAMOTIDINE PF 20 MG/2 ML VIAL IVP SCH (08:39)
[2018-11-14] MEDS: ENOXAPARIN SODIUM 40 MG/0.4 ML SYRINGE SUBCUT SCH (08:40)
--- NOTE | 2018-11-14 09:25 | NUR ---
IV MEDS: DUE IV MEDS GIVEN SCHEDULED. WITH NO PROBLEM.
--- NOTE | 2018-11-14 11:10 | NUR ---
RN ROUNDS: SLEEPING MOST OF THE TIME. VITAL SIGNS STABLE AND AFEBRILE.
--- NOTE | 2018-11-14 11:25 | NUR ---
Stage Producer Note Krystin from [facility] stated they cannot accept patient to SNF hospice until Medicare is reinstated. Addendum: 11/14/18 at 1236 by Meenakshi Clark LCSW Received a letter from Deb who has been to the Social Security office. The letter stated that patient's Medicare A & B has been reinstated and active since 08/2006. Discussed with Deb that if inpatient hospice cannot be found that it may be necessary to look at possible board and care placement with hospice. Deb stated that the first choice would be inpatient hospice but she would take patient home before she would have patient go to a B & C. Provided letter to Admitting. Called Felicity at [facility], f [phone]. She believes the letter will be enough to allow them to proceed with inpatient hospice. She will ask the director. Faxed the letter. Will follow up. Addendum: 11/14/18 at 1422 by Meenakshi Clark LCSW [facility] will not accept the letter as proof of insurance. They will not provide home hospice based on the letter either. Phoned Krystin at [facility] [phone] f [phone] cell [phone]. They would like information on patient for possible hospice at home. will fax. Addendum: 11/14/18 at 1443 by Meenakshi Clark LCSW Phoned James Richard, Conservator, , prior to faxing to [facility] to assure he is agreeable to hospice at home with caregiver Deb. Addendum: 11/14/18 at 7424 by Leanne Crespo LCSW ERLIN spoke with Krystin from [facility] who confirmed she received fax for Pt. she was unable to say that definitely that Pt. will be accepted. She will call tomorrow with confirmation. ERLIN left voicemail for conservator in regards to update so far. ERLIN spoke with [facility] who stated that they are willing to take Pt. with pending [facility] B issue. SS will continue to follow up.
--- NOTE | 2018-11-14 12:00 | NUR ---
RN ROUNDS: MAINTAINED NOTHING BY MOUTH ORDERED. CONTINUE TO MONITOR FOR ANY UNTOWARD MANIFESTATIONS. NOT IN ANY DISTRESS.
[2018-11-14 12:57] VITALS: BP_SYST 139
--- NOTE | 2018-11-14 14:30 | NUR ---
RN ROUNDS: PATIENT NOT RESPONDING TO CALLING NAME,NOT OPENING HER EYES.PATIENT JUST CLOSING HER EYES AND BREATHING WITH N NORMAL LIMIT.
--- NOTE | 2018-11-14 16:25 | NUR ---
RN ROUNDS: FAST ASLEEP. NO ACUTE DISTRESS. PATIENT STILL NOT RESPONDING WHEN CALLED BY NAME. REFUSED TO OPEN EYES.BREATHING NORMAL. CONTINUE TO MONITOR.
[2018-11-14 16:38] VITALS: BP_SYST 130
--- NOTE | 2018-11-14 18:13 | NUR ---
CLOSING NOTES: PATIENT SLEEPING DURING ROUNDS. NO CHANGE.NO ACUTE DISTRESS. VITAL SIGNS STABLE,AFEBRILE. BED LOCKED AT LOWEST POSITION. BED ALARM ON.UMANZOR IN SITU. CONDITION GUARDED.
--- NOTE | 2018-11-14 19:58 | NUR ---
Opening notes Received report. Patient is resting comfortably in bed. No signs of distress noted. Breathing even and unlabored. IV patent and intact, infusing fluids. Crabtree catheter in place, draining urine. Latest BP 101/49 HR 61. Will continue to monitor. Call light with the patient. Safety precautions in place.
[2018-11-14 20:00] VITALS: BP_SYST 120
--- NOTE | 2018-11-14 21:17 | NUR ---
Medications given. Educated the action and side effects of medications. Patient tolerated well. No signs of allergic reaction noted. New bag of IVF hung. Patient turned and repositioned. Call light with the patient. Safety precautions in place.
--- NOTE | 2018-11-14 23:52 | NUR ---
IV BP med given. BP 139/61 HR96. No signs of distress noted. Breathing even and unlabored on 2L NC. Will continue to monitor.
[2018-11-15] VITALS (8 sets, daily range): BP systolic 144–166
--- NOTE | 2018-11-15 01:30 | NUR ---
Sleeping No signs of distress noted. Breathing even and unlabored. IVF infusing well. Call light with the patient. Safety precautions in place.
[2018-11-15] MEDS: IPRATROPIUM/ALBUTEROL SULFATE 3 ML AMPUL.NEB (DUONEB) INH SCH ×4 (03:10→19:55)
[2018-11-15] MEDS: METOPROLOL TARTRATE 5 MG/5 ML VIAL IVP SCH ×5 (03:30→19:24)
--- NOTE | 2018-11-15 03:49 | NUR ---
Sleeping IV BP medication given. BP 134/67 HR 86. No adverse effects noted. Hygiene care provided. Patient tolerated well. Turned and repositioned to comfort. No other needs. Call light with the patient. Safety precautions in place.
--- NOTE | 2018-11-15 06:44 | NUR ---
Closing notes Patient resting in bed. No signs of distress noted. Breathing even and unlabored on 2 L NC. IV patent and intact, infusing fluids. christianson catheter in place draining urine. All needs met throughout the shift. No seizure activity noted throughout shift. Call light with the patient. Safety and seizure precautions in place. Will endorse care to day shift RN.
--- NOTE | 2018-11-15 08:30 | NUR ---
Initial note: Patient is lethargic, response to mild pain stimulater, slightly moves right arm by herself, and slightly moaning. She is "NPO" with 0.45% NS IVF at 65 ml/hr infusing well via right wrist IV site #22, no sign of infiltration. Reposition and give mouth care.
--- NOTE | 2018-11-15 08:35 | NUR ---
Hospice Medicare has gone through and showing up on the inquiry. Notified May at [facility]. Will follow up. Addendum: 11/15/18 at 1000 by Meenakshi Clark LCSW Notified MARCK Boyd as per NOAH, , that Medicare is showing up on the inquiry. Also, that [facility], p [phone] f [phone], will be out to evaluate the patient for inpatient hospice today, sometime around noon or after.
[2018-11-15] MEDS: FAMOTIDINE PF 20 MG/2 ML VIAL IVP SCH (09:20)
[2018-11-15] MEDS: levETIRAcetam 1,000 MG IV BAG 100 ML IV SCH (09:20)
[2018-11-15] MEDS: ENOXAPARIN SODIUM 40 MG/0.4 ML SYRINGE SUBCUT SCH (09:21)
[2018-11-15] MEDS: 0.45% NACL 1,000 ML IV SCH (12:02)
--- NOTE | 2018-11-15 14:07 | NUR ---
PM care: Patient has large loose yellowish stool. Give her a complete bed bath, and linen changing, reposition , and set her comfortable.
--- NOTE | 2018-11-15 14:43 | NUR ---
Hospice Evaluation: Felicity from [facility] is at the station. Patient has no family at bedside. Give information to her and will wait for the accepting condition.
--- NOTE | 2018-11-15 15:24 | NUR ---
Nutrition Follow Up RD reviewed pt's current EMR including diet hx, physician notes, nursing notes, pertinent labs/meds/procedures, care trends and care activity. Current Enteral Regimen: no active order Subjective Information: Pt seen in bed, appears in no distress at this time. No family at bedside. Per RN notes, family wishes to continue comfort care. Estimated Energy Expenditure (kcals/day) 0670-0081 kcal/day (30-35 kcal/kg CBW for sepsis) Estimated Protein Required (g/day) 83-110 gm/day (1.5-2 gm/kg CBW for sepsis) Estimated Fluid Required (l/day) 1.4 L/day (25 ml/kg CBW for geriatric maintenance) Problem/Etiology/Signs/Symptoms *Increased nutritional needs related to metabolic demands as evidenced by estimated nutritional requirements for sepsis, and elevated WBC and lactic acid lab values. - ongoing *Inadequate nutrient intake related to no tube feeding per family wish as evidenced by tube feeding discontinued - ongoing Expected Outcomes/Goals - Monitor enteral nutrition tolerance, appetite, and PO intakes w/ goal of pt meeting at least 50% of estimated nutritional needs, labs trending WNL, normal GI function, and skin integrity/wt maintenance Dietitian Recommendations 1. Adhere to comfort care per family and pt request. Follow Up Low Risk: FU 7 days
--- NOTE | 2018-11-15 15:29 | NUR ---
Dietitian Recommendations 1. Adhere to comfort care per family and pt request. Please see Nutrition Follow Up for details. LT, RD
--- NOTE | 2018-11-15 15:41 | NUR ---
Nuclear Cardiology Technologist: [facility]. Felicity stated she asked Dr. Clements to update notes as pt. is receiving Kepra meds through IV. The plan is pt. will go to [facility] and will not have an IV. She will get Kepra viz suppository and if pt. tolerates they will move her to [facility] home and provide services there. Deb stated she is in agreement with this plan. Felicity will let STUDY MANAGER know if she has any needs. STUDY MANAGER will remain available as needed.
--- NOTE | 2018-11-15 18:48 | NUR ---
closing note: Patient is stable, NPO , on Oxygen 2 L/M via NC, no sign of distress, on 0.45% NS IVF at 65 ml/hr, Crabtree catheter draining well via gravity. Awaiting for transportation to transfer patient to Hospice facility at 21.30 PM.
[2018-11-15] MEDS ORDERED: KEPI500 IV (19:31)
[2018-11-15] MEDS ORDERED: [UNRECOGNIZED DRUG - CODE] IV (19:33)
--- NOTE | 2018-11-15 21:36 | NUR ---
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 Patient in stable condition, ID band removed. IV catheter R. forearm 22G saline lock clear and patent. All belongings with pt.
== END 2018-11-15 21:39 | disposition hospice, inpatient (51) | DRG 871 ==
LOC: SED 02:59 → SIC 05:01 → STU 11-03 15:15 → SMU 11-04 15:09
PROVIDERS: ADMIT Internal Medicine; ATTEND Internal Medicine
DX: A41.51 Sepsis due to Escherichia coli [E. coli] (principal); G93.41 Metabolic encephalopathy; E43 Unspecified severe protein-calorie malnutrition; J69.0 Pneumonitis due to inhalation of food and vomit; N39.0 Urinary tract infection, site not specified; G40.901 Epilepsy, unspecified, not intractable, with status epilepticus; I48.91 Unspecified atrial fibrillation; I50.9 Heart failure, unspecified; H54.8 Legal blindness, as defined in USA; F03.90 Unspecified dementia, unspecified severity, without behavioral disturbance, psychotic disturbance, mood disturbance, and anxiety; Z66 Do not resuscitate; N18.9 Chronic kidney disease, unspecified; Z51.5 Encounter for palliative care; B96.20 Unspecified Escherichia coli [E. coli] as the cause of diseases classified elsewhere; Z74.01 Bed confinement status; Z86.73 Personal history of transient ischemic attack (TIA), and cerebral infarction without residual deficits; Z68.20 Body mass index [BMI] 20.0-20.9, adult
CPT/HCPCS: 36415; 36600; 70450-TC; 71045; 80048; 80053; 80061; 81000-TC; 82607; 82803-TC; 83605; 83735-TC; 83880; 84443-TC; 84484; 85025; 85610-TC; 85730-TC; 87040-TC; 87081; 87086; 87186-TC; 93005; 93306; 94640; 94760; 95816; 96361; 96365; 96372; 96375; 99291; G0378; J0282; J1160; J1650; J1953; J1956; J2060; J2543; J3480; J3490; J7030; J7042; J7050; J7060; J7620